=== PATIENT | male | born 1945 | race Caucasian/White ===

== ENCOUNTER 2017-02-10 01:15 | Inpatient (IN) | payer OTHER, MEDICAID ==
--- NOTE | 2017-02-10 01:39 | EDPHY ---
H & P Time Seen by Provider: 02/10/17 01:21 HPI/ROS: HPI The patient presents with a cold right leg which was noted tonight by his nurse at [facility]. He is brought in by ambulance. His nurse last assessed him 2 days ago and at that time his leg was red and swollen. It was being treated with some sort of wound care. When she saw him tonight, she noticed that the leg was cold and she was not able to find pulses, thus 911 was called. [facility] At this time the patient was noted to have a swollen leg and ABIs were performed which were supposedly normal. The patient denies any acute complaint, he does not have any pain of the leg, he does report decreased sensation to the foot.. REVIEW OF SYSTEMS Constitutional: No fever, no chills. Eyes: No discharge. ENT: No sore throat. Cardiovascular: No chest pain, no palpitations. Respiratory: No cough, no shortness of breath. Gastrointestinal: No abdominal pain, no vomiting. Genitourinary: No hematuria. Musculoskeletal: No back pain. Skin: No rashes. Neurological: No headache. PMHx: Soc Hx: Resides at [facility] FHx: PHYSICAL General Appearance: Alert, no distress Eyes: Pupils equal and round no pallor or injection ENT, Mouth: Mucous membranes moist Respiratory: There are no retractions, lungs are clear to auscultation Cardiovascular: Regular rate and rhythm Gastrointestinal: Abdomen is soft and non-tender, no masses, bowel sounds normal Neurological: A&O, moves all extremities Skin: Warm and dry, no rashes Musculoskeletal: Neck is supple non tender Extremities: Right leg, all toes have been amputated, foot and leg is mottled to knee and cold to mid thigh, he has range of motion of his ankle and his knee , he has decreased sensation of his foot, Left BKA Psychiatric: Patient is oriented X 3, there is no agitation Source: Patient, EMS Constitutional: Initial Vital Signs Temperature (C) 36.4 C 02/10/17 01:23 Heart Rate 72 02/10/17 01:23 Respiratory Rate 18 02/10/17 01:23 Blood Pressure 94/69 L 02/10/17 01:23 O2 Sat (%) 93 02/10/17 01:23 O2 Delivery Mode Room Air Allergies/Adverse Reactions: No Known Allergies Allergy (Unverified 02/10/17 01:36) Medical Decision Making - Diagnostics EKG Interpretation: EKG: Complete interpretation has been separately recorded in the [facility] archive. Summary impression: Atrial flutter with right bundle-branch block Imaging Results: CTA of right lower extremity demonstrates no discrete embolism or filling defect identified, contrast column phase at level of origin of the anterior tibial artery and the common peroneal trunk. This is discussed with Dr. Vizcarra of Radiology. Slow inflow confound the study results. Differential Diagnosis: This is a 71-year-old man with vascular disease who presents brought in by ambulance from [facility] with concern for limb ischemia. The duration of his symptoms is somewhat unclear. He denies any acute pain. Differential diagnosis includes acute embolic arterial disease, peripheral vascular disease with stenosis, cellulitis. In the ER, labs were checked and did reveal elevated INR. Otherwise they were unremarkable. A CTA was performed which did demonstrate some signs of decreased perfusion. I consulted with Dr. Betancur of surgery and Dr. Eng of the hospitalist service. They will see the patient in consultation. It seems that the patient is not a surgical candidate as there is not a distal artery for bypass. He may benefit from interventional Radiology. I plan to start him on heparin and see how he responds. - Data Points Laboratory Results: Laboratory Results 02/10/17 01:53 02/10/17 01:53 02/10/17 02/10/17 02/10/17 01:53 01:53 01:53 WBC 6.73 10^3/uL 10^3/uL (3.80-9.50) RBC 5.67 10^6/uL 10^6/uL (4.40-6.38) Hgb 17.5 g/dL g/dL (13.7-17.5) Hct 52.6 % H % (40.0-51.0) MCV 92.8 fL fL (81.5-99.8) MCH 30.9 pg pg (27.9-34.1) MCHC 33.3 g/dL g/dL (32.4-36.7) RDW 15.3 % H % (11.5-15.2) Plt Count 234 10^3/uL 10^3/uL (150-400) MPV 10.5 fL fL (8.7-11.7) Neut % (Auto) 59.8 % % (39.3-74.2) Lymph % (Auto) 29.9 % % (15.0-45.0) [place] % (Auto) 7.1 % % (4.5-13.0) Eos % (Auto) 1.8 % % (0.6-7.6) Baso % (Auto) 0.7 % % (0.3-1.7) Nucleat RBC Rel Count 0.0 % % (0.0-0.2) Absolute Neuts (auto) 4.02 10^3/uL 10^3/uL (1.70-6.50) Absolute Lymphs (auto) 2.01 10^3/uL 10^3/uL (1.00-3.00) Absolute Monos (auto) 0.48 10^3/uL 10^3/uL (0.30-0.80) Absolute Eos (auto) 0.12 10^3/uL 10^3/uL (0.03-0.40) Absolute Basos (auto) 0.05 10^3/uL 10^3/uL (0.02-0.10) Absolute Nucleated RBC 0.00 10^3/uL 10^3/uL (0-0.01) Immature Gran % 0.7 % % (0.0-1.1) Immature Gran # 0.05 10^3/uL 10^3/uL (0.00-0.10) PT 25.1 SEC H SEC (12.0-15.0) INR 2.25 H (0.83-1.16) APTT 45.0 SEC H SEC (23.0-38.0) Sodium 139 mEq/L mEq/L (134-144) Potassium 4.8 mEq/L mEq/L (3.5-5.2) Chloride 103 mEq/L mEq/L (97-110) Carbon Dioxide 25 mEq/l mEq/l (22-31) Anion Gap 11 mEq/L mEq/L (8-16) BUN 20 mg/dL mg/dL (7-23) Creatinine 0.8 mg/dL mg/dL (0.7-1.3) Estimated GFR > 60 Glucose 96 mg/dL mg/dL (70-100) Calcium 10.6 mg/dL H mg/dL (8.5-10.4) Total Bilirubin 1.1 mg/dL mg/dL (0.1-1.4) AST 35 IU/L IU/L (17-59) ALT 41 IU/L IU/L (21-72) Alkaline Phosphatase 134 IU/L H IU/L (38-126) Total Protein 9.3 g/dL H g/dL (6.3-8.2) Albumin 4.4 g/dL g/dL (3.5-5.0) Departure - Departure Disposition: [facility] Inpatient Acute Clinical Impression: Lower limb ischemia Atrial fibrillation Qualifiers: Atrial fibrillation type: chronic Qualified Code(s): I48.2 - Chronic atrial fibrillation Hx of BKA Qualifiers: Laterality: left Qualified Code(s): Z89.512 - Acquired absence of left leg below knee Condition: Fair
[2017-02-10 02:02] LABS: % IMMATURE GRANULYOCYTES 0.7 % (0.0-1.1); ABSOLUTE IMMATURE GRANULOCYTES 0.05 10^3/uL (0.00-0.10); ADD DIFF? NO; ADD MORPH? NO; ADD SCAN? NO; ATYPICAL LYMPHOCYTE FLAG 30 (0-99); FRAGMENT RBC FLAG 0 (0-99); HEMATOCRIT 52.6 % (40.0-51.0); HEMOGLOBIN 17.5 g/dL (13.7-17.5); LEFT SHIFT FLG 0 (0-99); LIPEMIA HEMOLYSIS FLAG 80 (0-99); MEAN CELL HEMOGLOBIN 30.9 pg (27.9-34.1); MEAN CELL HEMOGLOBIN CONCENTR. 33.3 g/dL (32.4-36.7); MEAN CELL VOLUME 92.8 fL (81.5-99.8); MEAN PLATELET VOLUME 10.5 fL (8.7-11.7); PLATELET CLUMPS FLAG 0 (0-99); PLATELET COUNT 234 10^3/uL (150-400); RED BLOOD CELL COUNT 5.67 10^6/uL (4.40-6.38); RED CELL DISTRIBUTION WIDTH 15.3 % (11.5-15.2)
[2017-02-10 02:12] LABS: INR 2.25 (0.83-1.16); PROTIME(PATIENT) 25.1 SEC (12.0-15.0)
[2017-02-10] MEDS ORDERED: IOPAMIDOL (ISOVUE 370) 100 ML BTL IV ONE (02:17)
[2017-02-10 02:22] LABS: ALANINE AMINOTRANSFERASE 41 IU/L (21-72); ALBUMIN 4.4 g/dL (3.5-5.0); ALKALINE PHOSPHATASE 134 IU/L (38-126); ANION GAP 11 mEq/L (8-16); ASPARTATE AMINOTRANSFERASE 35 IU/L (17-59); BILIRUBIN,TOTAL 1.1 mg/dL (0.1-1.4); CALCIUM 10.6 mg/dL (8.5-10.4); CARBON DIOXIDE 25 mEq/l (22-31); CHLORIDE 103 mEq/L (97-110); CREATININE 0.8 mg/dL (0.7-1.3); GLOMERULAR FILTRATION RATE > 60; GLUCOSE 96 mg/dL (70-100); POTASSIUM 4.8 mEq/L (3.5-5.2); SODIUM 139 mEq/L (134-144); TOTAL PROTEIN 9.3 g/dL (6.3-8.2)
[2017-02-10] MEDS ORDERED: HEPARIN/DEXTROSE 500 ML IV ONE (04:35)
--- NOTE | 2017-02-10 04:45 | CPEKG ---
Heart Rate: 93 RR Interval: 645 QRSD Interval: 158 QT Interval: 416 QTC Interval: 518 QRS Steptoe: 105 T Wave Steptoe: 55 EKG Severity - ABNORMAL ECG - EKG Impression: ATRIAL FLUTTER, A-RATE 319 EKG Impression: RBBB AND LPFB Electronically Signed By: Skye Adams 10-Feb-2017 22:31:52
[2017-02-10] MEDS ORDERED: ONDANSETRON 4 MG/2 ML VIAL IVP PRN (05:23)
[2017-02-10] MEDS ORDERED: ONDANSETRON DISINTEGRATING 4 MG TAB PO PRN (05:23)
[2017-02-10] MEDS ORDERED: oxyCODONE IR 5 MG TAB PO PRN ×2 (05:23→11:56)
[2017-02-10] MEDS ORDERED: HEPARIN 10,000 UNIT/10 ML MDV IVP PRN (05:24)
[2017-02-10] MEDS ORDERED: HEPARIN/DEXTROSE 500 ML IV SCH (05:30)
--- NOTE | 2017-02-10 06:23 | GHP ---
[f rep st] HISTORY AND PHYSICAL DATE OF ADMISSION: 02/10/2017 CHIEF COMPLAINT: Cold leg. HISTORY OF PRESENT ILLNESS: This is a 71-year-old man with a history of AFib, on Xarelto, who presents with a cold leg. He is sent in from [facility]. He was evaluated for this on February 05, 5 days ago, by a physician there. At that point, he felt it was most consistent with cellulitis, ordered ABIs which were subsequently reported as normal. He was actually sent in today because the nurse, who had been on vacation, came back and felt that the temperature of his leg was much different than previous. He does not really remember. He does have sensation on his leg. It is not really painful. He is also able to move his foot. He had a left BKA due to infection. He is continuing to smoke. The patient is primarily wheelchair bound. He previously had a prosthetic and reports that he has another one ordered, however he is not sure that he really wants to walk. He is able to transfer to his wheelchair. PAST MEDICAL/SURGICAL HISTORY: 1. Urinary retention status post Perez catheter. 2. Reported pressure injury on the sacrum. 3. Reported systolic CHF. 4. Left BKA. 5. Pilonidal cyst resection. 6. Paroxysmal atrial fibrillation, on Xarelto. 7. History of a PE. 8. Dementia. 9. 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 FAMILY HISTORY: Parents are . SOCIAL HISTORY: He smokes a pack or less a day. ALLERGIES: None. MEDICATIONS: Please see medication reconciliation. REVIEW OF SYSTEMS: 10-point review of systems is conducted and is negative except per HPI. PHYSICAL EXAM: VITAL SIGNS: Blood pressure 91/69, heart rate 80, respiration rate 18, saturating 95% on room air, temperature is 36.4. GENERAL: The patient is a pleasant man who is resting comfortably, wearing dark sunglasses, in no acute distress. HEENT: Normocephalic, atraumatic. CARDIOVASCULAR: Irregularly irregular. There are no murmurs, rubs, or gallops. PULMONARY: No respiratory distress. He is breathing comfortably. His lungs are clear bilaterally. ABDOMEN: Soft, nontender, nondistended. SKIN: No rash. : Perez catheter in place. NEUROLOGIC: Alert and oriented x3. He is moving all extremities. PSYCHIATRIC: Normal mood and affect. EXTREMITIES: Right lower extremity with a palpable popliteal pulse. He has dopplerable dorsalis pedis, anterior tibialis, as well as posterior tibialis pulses on the right leg. His right leg is cold, it has got scale on it with diffuse erythema. He has sensation intact. LABS: White count of 6.7. INR of 2.25. Basic metabolic panel is normal. Total protein is 9.3. Calcium is 10.6. DATA: 1. EKG, which I personally reviewed and interpreted, shows atrial fibrillation. He has a right bundle branch block pattern. 2. Extremity CT, which I reviewed with Dr. Betancur, shows slow inflow to right leg, column contrast phase at level of origin of anterior tibial artery and common peroneal trunk with no discrete embolism or filling defect identified. 3. I discussed this with both Dr. Aldridge as well as Dr. Betancur. IMPRESSION AND PLAN: This is a 71-year-old man who presents with a cold right leg, also status post left below-knee amputation. 1. Cold right leg: Reportedly normal CAMILA and easily dopplerable pulses in the right leg are somewhat reassuring, though do not clinically fit with the temperature of his leg. I noticed that his left stump is also quite cool. Will request a formal angiogram in the morning, if there is an embolism or thrombus would consider tPA. Will empirically give him heparin overnight, without a bolus as he has been on Xarelto. Per Dr. Betancur, there is no clear target for a bypass. I am not sure what his normal blood pressures are but he is borderline hypotensive now, I wonder if that is contributing to the coldness. I will give him some slow IV fluids, acknowledging that he has congestive heart failure and this may need to be discontinued. At this point, I do not think that his right leg looks cellulitic. It is cold, not warm, and he has no white count. 2. Atrial fibrillation: Will continue his rate control medications, will currently be on heparin for anticoagulation. 3. Reported pressure ulcer: I have ordered a wound care consult. 4. Smoking: Will need to strongly encourage cessation. 5. Chronic congestive heart failure: He is currently euvolemic. Will continue cardiac medications when they are reconciled. 6. Urinary retention with chronic Perez catheter. 7. His code status is do not resuscitate per his outside records. /[id number]/MODL MTDD
--- NOTE | 2017-02-10 06:38 | GCON ---
[f rep st] CONSULTATION DATE OF CONSULTATION: 02/10/2017 CHIEF COMPLAINT: Right lower extremity pain. HISTORY OF PRESENT ILLNESS: This is a 71-year-old male transferred here from [facility] where he resides with a chief complaint of right lower extremity cellulitis and pain. Briefly, the patient has what appears to be some long-standing lower extremity issues. At any rate, has been followed at [facility] for at least the past few weeks with these. It was noted, probably about a week and a half to 2 weeks ago, that the patient had some increasing redness on his right lower extremity. T his redness has persisted and it sounds like it was worked up, somewhat at [facility]. He was ev aluated by a physician and CAMILA was ordered, and per chart review states that it was normal. At that point in time, the patient also had what appeared to be palpable pulses. At any rate, his primary manager party felt as though it was progressing, which prompted his presentation here. Here in the [facility] department, he really does not complain of much of anything including symptoms at that area. He states that there is a little bit of pain in the bottom and dorsum of his right foot, but really states that it does not feel any different than it normally does. He describes the pain as a 2/10 t o 3/10, nonradiating, and really says it is sort of more of a dull ache than anything. Other than t his, he has no complaints and states that he otherwise feels well. He is currently wheelchair bound , he has a left below-knee amputation which was done some time ago for what appears to be an infecti on and currently is wheelchair bound. He sleeps in the wheel chair. He uses the wheelchair to get around. He said that he does have a prosthesis for that left lower extremity, but that he does not really wear it and probably would not walk even if he did. PAST MEDICAL HISTORY: Atrial fibrillation, on blood thinners. PAST SURGICAL HISTORY: Left below-knee amputation. FAMILY HISTORY: Noncontributory. SOCIAL HISTORY: Resides at [facility]. Continues to smoke about a pack a day. Denies any illic it drug use. REVIEW OF SYSTEMS: A full 10-point review was performed and unless stated above, is otherwise negat torsten. PHYSICAL EXAM: VITAL SIGNS: Temp 36.4, blood pressure 90/60, heart rate 80, and he is 95% on room air. GENERAL: He is alert, oriented, in no acute distress. SKIN: With the exception of the right lower extremity, the remainder of the skin is pale and dry. The right lower extremity has some red ness extending from the lower leg just below the knee on down. The right lower extremity is cool to touch. There are some signs of chronic venous stasis and lipodermatosclerosis of the right lower e xtremity as well. He is missing his right toes. EYES: His extraocular movements are intact. His pupils are equal and round. EARS, NOSE, THROAT AND MOUTH: Moist mucosa. Poor dentition. Signs of chronic tobacco use. CV: He is irregularly-irregular. RESPIRATORY: His lungs are clear. GI: H is abdomen is soft, nondistended, nontender. NEURO: Grossly intact and nonfocal. His cranial nerv es appear intact. PSYCH: He has normal orientation and appropriate insight. VASCULAR: He has 2+ femoral pulse on the right side, 2+ popliteal pulse on the right side, and he has strong biphasic si gnals in both the DP and PT, and AT distributions. On the left side he does not have a palpable fem oral pulse. He has a weak femoral signal on that side. The remainder of his brachial and radial pu lses are palpable bilaterally. LABS: White count normal at 6, H and H 17 and 52, platelets 234. Coags: His INR is likely falsely elevated at 2.2 given his Xarelto use. His chemistry is largely unremarkable. IMAGING: Includes a CTA with runoff of the right lower extremity, the images of which were personal ly reviewed by me. This shows actually a fairly good inflow. He has good flow through the iliacs, femoral, all the way down to the popliteal distribution. It is unclear whether or not this is a poo r study, or he has poor circulation, but at the level of the trifurcation in the lower leg it appear s that he does have at least 2 vessel runoff here on the CTA , but it kind of fizzles out at the lev el of the mid to lower leg. ASSESSMENT AND PLAN: 71-year-old male with questionable threatened right lower extremity. It is un clear as to what the patient's baseline is, but my examination today does show that his right lower extremity is fairly cool to the touch which is surprising given the fact that he actually has decent flow to the lower extremity. He has good inflow on the CTA and strong biphasic pulses all the way down to the level of the foot. Given the fact that he has no fevers, chills, normal white blood andrei l count, I do not feel as though he has a large component of cellulitis and do not feel at this poin t in time that antibiotics would be useful. I do feel that warming the leg and keeping it elevated would be helpful as he does have evidence of chronic venous stasis. In addition, I think that an em piric heparin drip would help. I am unclear as to what his baseline is, as I already stated, but in creasing the flow to that lower extremity would be helpful in figuring out if this demarcates as an acutely threatened limb. In addition, I do feel that pursuing a formal angiogram would be helpful a s well, as the CTA was fairly equivocal in showing any kind distal disease in that leg, and will dmitry k with the interventional radiologist later this morning. I examined and discussed my findings with Dr. Eng, the admitting medicine physician. /[id number]/MODL
[2017-02-10] MEDS: NS 1,000 ML IV SCH ×2 (06:55→14:57)
[2017-02-10 08:01] LABS: % IMMATURE GRANULYOCYTES 0.6 % (0.0-1.1); ABSOLUTE IMMATURE GRANULOCYTES 0.04 10^3/uL (0.00-0.10); ADD DIFF? NO; ADD MORPH? NO; ADD SCAN? NO; ATYPICAL LYMPHOCYTE FLAG 30 (0-99); FRAGMENT RBC FLAG 0 (0-99); HEMATOCRIT 45.9 % (40.0-51.0); LEFT SHIFT FLG 0 (0-99); LIPEMIA HEMOLYSIS FLAG 80 (0-99); MEAN CELL HEMOGLOBIN 30.2 pg (27.9-34.1); MEAN CELL HEMOGLOBIN CONCENTR. 32.7 g/dL (32.4-36.7); MEAN CELL VOLUME 92.5 fL (81.5-99.8); MEAN PLATELET VOLUME 10.4 fL (8.7-11.7); PLATELET CLUMPS FLAG 0 (0-99); PLATELET COUNT 214 10^3/uL (150-400); RED BLOOD CELL COUNT 4.96 10^6/uL (4.40-6.38); RED CELL DISTRIBUTION WIDTH 15.4 % (11.5-15.2)
[2017-02-10 08:26] LABS: INR 1.79 (0.83-1.16); PROTIME(PATIENT) 20.9 SEC (12.0-15.0)
[2017-02-10 08:50] LABS: ALANINE AMINOTRANSFERASE 34 IU/L (21-72); ALBUMIN 3.6 g/dL (3.5-5.0); ALKALINE PHOSPHATASE 115 IU/L (38-126); ANION GAP 10 mEq/L (8-16); ASPARTATE AMINOTRANSFERASE 20 IU/L (17-59); BILIRUBIN,TOTAL 0.9 mg/dL (0.1-1.4); CALCIUM 9.7 mg/dL (8.5-10.4); CARBON DIOXIDE 25 mEq/l (22-31); CHLORIDE 104 mEq/L (97-110); CREATININE 0.7 mg/dL (0.7-1.3); GLOMERULAR FILTRATION RATE > 60; GLUCOSE 84 mg/dL (70-100); POTASSIUM 4.2 mEq/L (3.5-5.2); SODIUM 139 mEq/L (134-144)
--- NOTE | 2017-02-10 11:14 | PDCONSULT ---
Aircraft Accessories Mechanic Note: Date: 02/10/2017 Reason for Consultation: Cold right leg, concern for ischemia HPI: The patient is a 71 yo male [facility] resident with history of PAD and atrial fib s/p left BKA and partial right foot amputation in the setting of frostbite. The [facility] staff report that his right leg has been cold to the touch for the past 1-2 days. CTA was performed this morning with stoppage of contrast at the level of the tifurctation. Past Medical History Atrial fibrillation (Acute) Hx of BKA (Acute) Lower limb ischemia (Acute) Allergies: NKDA Medications: ARIPiprazole [Abilify 2 mg (*)] 2 mg PO DAILY 02/10/17 [Last Taken 02/09/17] Acetaminophen [Tylenol 325mg (*)] 325 mg PO Q6 PRN 02/10/17 [Last Taken Unknown] Ascorbic Acid [Vitamin C 500 mg (*)] 1,000 mg PO BID 02/10/17 [Last Taken ] Carvedilol [Coreg (*)] 6.25 mg PO BIDMEAL 02/10/17 [Last Taken 02/09/17] Cholecalciferol Vit D3 [Vitamin D3 (*)] 50,000 unit PO WE 02/10/17 [Last Taken 02/07/17] Digoxin [Lanoxin 125 mcg (RX)] 125 mcg PO DAILY@08 02/10/17 [Last Taken 02/09/17 ] Fluconazole [Diflucan (*)] 150 mg PO DAILY 02/10/17 [Last Taken 02/09/17] Furosemide [Lasix 40 MG (*)] 40 mg PO DAILY 02/10/17 [Last Taken 02/09/17] Magnesium Hydroxide [Milk of Magnesia] 30 ml PO DAILY PRN 02/10/17 [Last Taken Unknown] Potassium Cl [Klor-Con 20 meq (*)] 20 meq PO DAILY 02/10/17 [Last Taken 02/09/17 ] Prednisolone Sod Phosphate [Prednisolone Sodium Phosphate] 1 drop EACHEYE QID PRN 02/10/17 [Last Taken 02/09/17] Rivaroxaban [Xarelto] 20 mg PO DAILY@17 02/10/17 [Last Taken 02/09/17] Sennosides [Senokot 8.6mg (OTC)] 2 each PO HS PRN 02/10/17 [Last Taken 02/09/17] guaiFENesin [Guaifenesin ER] 600 mg PO Q12H PRN 02/10/17 [Last Taken Unknown] oxyCODONE IR [Oxycodone Ir (*)] 5 mg PO DAILY PRN 02/10/17 [Last Taken 02/07/17] Physical Exam: Vitals: 36.8 C, 88, 15, 96/68, 90% RA General: Pleasant male, in NAD Chest: Lungs CTAB, S1,S2 Abdomen: Soft/ND Ext: Left BKA. Stump warm, no tissue breakdown. Partial right foot amputation. Chronic skin changes in calf and foot. Skin is warm and pink. Faint palpable DP and PT pulses. Labs: WBC 6.72 10^3/uL (3.80-9.50) 02/10/17 07:55 RBC 4.96 10^6/uL (4.40-6.38) 02/10/17 07:55 Hgb 15.0 g/dL (13.7-17.5) 02/10/17 07:55 Hct 45.9 % (40.0-51.0) 02/10/17 07:55 MCV 92.5 fL (81.5-99.8) 02/10/17 07:55 MCH 30.2 pg (27.9-34.1) 02/10/17 07:55 MCHC 32.7 g/dL (32.4-36.7) 02/10/17 07:55 RDW 15.4 % (11.5-15.2) H 02/10/17 07:55 Plt Count 214 10^3/uL (150-400) 02/10/17 07:55 MPV 10.4 fL (8.7-11.7) 02/10/17 07:55 Neut % (Auto) 63.7 % (39.3-74.2) 02/10/17 07:55 Lymph % (Auto) 24.9 % (15.0-45.0) 02/10/17 07:55 [place] % (Auto) 8.6 % (4.5-13.0) 02/10/17 07:55 Eos % (Auto) 1.8 % (0.6-7.6) 02/10/17 07:55 Baso % (Auto) 0.4 % (0.3-1.7) 02/10/17 07:55 Nucleat RBC Rel Count 0.0 % (0.0-0.2) 02/10/17 07:55 Absolute Neuts (auto) 4.28 10^3/uL (1.70-6.50) 02/10/17 07:55 Absolute Lymphs (auto) 1.67 10^3/uL (1.00-3.00) 02/10/17 07:55 Absolute Monos (auto) 0.58 10^3/uL (0.30-0.80) 02/10/17 07:55 Absolute Eos (auto) 0.12 10^3/uL (0.03-0.40) 02/10/17 07:55 Absolute Basos (auto) 0.03 10^3/uL (0.02-0.10) 02/10/17 07:55 Absolute Nucleated RBC 0.00 10^3/uL (0-0.01) 02/10/17 07:55 Immature Gran % 0.6 % (0.0-1.1) 02/10/17 07:55 Immature Gran # 0.04 10^3/uL (0.00-0.10) 02/10/17 07:55 PT 20.9 SEC (12.0-15.0) H 02/10/17 07:55 INR 1.79 (0.83-1.16) H 02/10/17 07:55 APTT 39.0 SEC (23.0-38.0) H 02/10/17 07:55 Sodium 139 mEq/L (134-144) 02/10/17 07:55 Potassium 4.2 mEq/L (3.5-5.2) 02/10/17 07:55 Chloride 104 mEq/L (97-110) 02/10/17 07:55 Carbon Dioxide 25 mEq/l (22-31) 02/10/17 07:55 Anion Gap 10 mEq/L (8-16) 02/10/17 07:55 BUN 18 mg/dL (7-23) 02/10/17 07:55 Creatinine 0.7 mg/dL (0.7-1.3) 02/10/17 07:55 Estimated GFR > 60 02/10/17 07:55 Glucose 84 mg/dL (70-100) 02/10/17 07:55 Calcium 9.7 mg/dL (8.5-10.4) 02/10/17 07:55 Total Bilirubin 0.9 mg/dL (0.1-1.4) 02/10/17 07:55 AST 20 IU/L (17-59) 02/10/17 07:55 ALT 34 IU/L (21-72) 02/10/17 07:55 Alkaline Phosphatase 115 IU/L (38-126) 02/10/17 07:55 Total Protein 7.0 g/dL (6.3-8.2) D 02/10/17 07:55 Albumin 3.6 g/dL (3.5-5.0) 02/10/17 07:55 Imaging: Extremity CT 02/10/17 01:42 Impression: 1. Slow inflow to the right leg results in this nondiagnostic evaluation of the arteries in the calf due to inability to fully tract the bolus (despite additional delay scan). 2. Patent right lower extremity runoff to level the popliteal artery. 3. No discrete occlusion, filling defect, or high-grade stenosis. The study was performed as an emergency on-call case and discussed by telephone with Dr. Aldridge at 4:08 AM February 10, 2017. The final interpretation is concordant with the original communication. Assessment/Recommendations: 71 yo male with history of atrial fibrillation, on Xeralto presenting with 1-2 days of "cold, blue right leg." He was started on a heparin drip in the ED and CTA of the lower extremity obtained showing moderate atherosclerotic disease in the right popliteal artery and tibial vessels with decreased contrast opacification at the trifurcation level, likely due to slow flow. He has chronic skin changes in the right calf however, the leg is warm and pink with palpable pulses on exam. There is no evidence of acute ischemia at this time. Given the fact that he is on Xeralto, I would recommend foregoing formal angiography for the time being. He would likely benefit from antiplatelet therapy and possibly statin initiation as well. Recommend FU with Interventional Radiology or Vascular surgery for more thorough evaluation. Feel free to contact me directly with any questions or concerns. Amadou Sandhu MD, PhD [phone]
[2017-02-10] MEDS ORDERED: SENNOSIDES 1 TAB PO PRN (11:56)
[2017-02-10] MEDS ORDERED: NS 500 ML IV ONE (12:09)
--- NOTE | 2017-02-10 12:13 | HOSPPROG ---
Hospitalist Progress Note Assessment/Plan: Cold extremity - presented with cold RLE, this has improved since initiation of heparin. IR does not recommend angiography given that his RLE is now warm with palpable distal pulses. Will d/c heparin and start anti-platelet therapy in addition to his Xarelto. Also, add statin. Will need outpt vascular surgery f/ u. RLE erythema in setting of venous stasis changes - doubt cellulitis / infection as pt if afebrile with normal wbc's. However, given hypotension, will check BCx 's and lactate. Small fluid bolus now, monitor clinical symptoms. Hypotension - This may have contributed to poor perfusion of RLE. Holding his Coreg and Lasix for now as he is receiving IVF's. ?volume depletion though as above, check BCx's and lactate. H/O chronic HF - Euvolemic to dry on arrival, cautious with IVF's, BP improved this evening, will dc IVF's for now. Resume Lasix in AM if BP tolerates. Defer echo for now, unless e/o worsening HF symptoms. PVD - On Xarelto, add ASA as above. Will need outpt f/u with Dr. Brandon Garcia fib - Rate controlled on Digoxin and Coreg, holding the latter for hypotension. Cont Xarelto for stroke prevention. Dementia - at risk for acute delirium, prn seroquel Temporal wasting - check HIV DNR Subjective: Pt admitted this am with cold RLE. This has since resolved. He has dementia, is not conversing in a reasonable manner. No fevers here in ED. Objective: Vital Signs Temp Pulse Resp BP Pulse Ox 36.8 C 88 16 96/68 L 90 L 02/10/17 08:00 02/10/17 08:00 02/10/17 08:00 02/10/17 08:00 02/10/17 08:00 Laboratory Results 02/10/17 07:55 02/10/17 07:55 PT 20.9 SEC (12.0-15.0) H 02/10/17 07:55 INR 1.79 (0.83-1.16) H 02/10/17 07:55 - Physical Exam Constitutional: chronically ill appearing, other (+temporal wasting) Eyes: PERRL Ears, Nose, Mouth, Throat: moist mucous membranes Cardiovascular: regular rate and rhythym Respiratory: no respiratory distress, clear to auscultation Gastrointestinal: normoactive bowel sounds, soft, non-tender abdomen Skin: warm Musculoskeletal: other (RLE with chronic venous stasis changes, 2+ DP pulse, no significant heat to touch) Psychiatric: poor insight, poor judgement, poor memory ICD10 Worksheet Patient Problems: Problems Problem Status Onset Atrial fibrillation Acute Hx of BKA Acute Lower limb ischemia Acute
[2017-02-10] MEDS ORDERED: QUEtiapine FUMARATE 25 MG TAB PO PRN (12:16)
[2017-02-10] MEDS ORDERED: NICOTINE POLACRILEX 2 MG GUM B PRN (12:17)
[2017-02-10] MEDS: ARIPiprazole 2 MG TAB PO SCH (14:52)
[2017-02-10] MEDS: ATORVASTATIN CALCIUM 40 MG TAB PO SCH (14:52)
[2017-02-10] MEDS: DIGOXIN 125 MCG TAB PO SCH (14:52)
[2017-02-10] MEDS: FLUCONAZOLE 150 MG TAB PO SCH (14:52)
[2017-02-10] MEDS: ASPIRIN 325 MG TAB PO SCH (14:56)
[2017-02-10] MEDS: ACETAMINOPHEN 325 MG TAB PO PRN (14:56)
[2017-02-10] MEDS ORDERED: prednisoLONE ACET 1% 5 ML OPHT.BTL EACHEYE PRN (15:00)
[2017-02-11] MEDS: DIGOXIN 125 MCG TAB PO SCH (08:19)
[2017-02-11] MEDS: FLUCONAZOLE 150 MG TAB PO SCH (08:19)
[2017-02-11] MEDS: ASPIRIN 325 MG TAB PO SCH (08:19)
[2017-02-11] MEDS: ARIPiprazole 2 MG TAB PO SCH (08:20)
[2017-02-11] MEDS: ATORVASTATIN CALCIUM 40 MG TAB PO SCH (08:20)
[2017-02-11] MEDS ORDERED: CARVEDILOL 3.125 MG TAB PO SCH (09:00)
[2017-02-11] MEDS ORDERED: FUROSEMIDE 40 MG TAB PO SCH (09:00)
--- NOTE | 2017-02-11 12:57 | WOCRNPDOC ---
WOCRN Advanced Assessment Note - Skin Integrity Problem, Advanced Assess Right Lower Leg Venous Stasis Ulcer Dressing Type: Open to Air Exudate Amount: None Exudate Characteristic(s): None Integumentary Issue Intervention: Lotion/Cream Applied (Attrac-tain) Bea Wound Tissue: Erythema, Venous Dermatitis Skin Integrity Problem Comment: No wound observed on RLE. Erythema noted throughout entire LE, along w/ venous dermatitis and copious dry, scaly skin. food quality technician reported dependent rubor, though patient's leg was elevated during assessment and continued to have redness throughout. DP pulse +1 in RLE. No edema noted presently, but skin has puckered appearance indicative of prior swelling to this extremity. Possible mixed venous and arterial insufficiency. Ordered Attrac-tain cream to be applied to RLE BID. Wound care does not need to follow going forward.
[2017-02-11] MEDS ORDERED: NS 1,000 ML IV SCH (19:00)
--- NOTE | 2017-02-11 19:02 | HOSPPROG ---
Hospitalist Progress Note Assessment/Plan: Cold extremity - presented with cold RLE, this improved on heparin. IR did not recommend angiography given that his RLE is now warm with palpable distal pulses. Now off heparin. Added ASA to Xarelto, along with statin. Will need outpt vascular surgery f/u. RLE erythema in setting of venous stasis changes - doubt cellulitis / infection as pt if afebrile with normal wbc's. Lactate normal. BCx's pending. Keep leg elevated. Hypotension - persists. Holding his Coreg and Lasix. Check am cortisol to r/o adrenal insufficiency. Check echo to evaluate LV function given h/o HF. Will resume IVF's tonight. H/O chronic HF - Euvolemic to dry on arrival. Holding diuretics given hypotension. Echo ordered. PVD - On Xarelto, add ASA as above. Will need outpt f/u with Dr. Brandon Garcia fib - Rate controlled on Digoxin and Coreg, holding the latter for hypotension. Cont Xarelto for stroke prevention. Dementia - at risk for acute delirium, prn seroquel Temporal wasting - check HIV DNR Subjective: Pt feels ok, but doesn't think he is ready for discharge. No specific complaints. When leg is elevated, he has good perfusion and normal pulses, but per RN, leg became cold and purple with dependent position. Objective: Vital Signs Temp Pulse Resp BP Pulse Ox 36.6 C 70 18 86/67 L 89 L 02/11/17 15:34 02/11/17 15:34 02/11/17 15:34 02/11/17 15:34 02/11/17 15:34 Laboratory Results 02/11/17 04:59 02/10/17 07:55 02/10/17 02/11/17 02/12/17 05:59 05:59 05:59 Intake Total 550 Output Total 1200 650 Balance -650 -650 PT 20.9 SEC (12.0-15.0) H 02/10/17 07:55 INR 1.79 (0.83-1.16) H 02/10/17 07:55 - Physical Exam Constitutional: chronically ill appearing Eyes: PERRL Ears, Nose, Mouth, Throat: moist mucous membranes Cardiovascular: regular rate and rhythym Respiratory: no respiratory distress, clear to auscultation Gastrointestinal: normoactive bowel sounds, soft, non-tender abdomen Skin: warm Musculoskeletal: other (RLE with chronic venous stasis changes, pink, warm, 2+ DP) Neurologic: AAOx3 Psychiatric: interacting appropriately ICD10 Worksheet Patient Problems: Problems Problem Status Onset Atrial fibrillation Acute Hx of BKA Acute Lower limb ischemia Acute
[2017-02-11 23:11] VITALS: TEMP 97.5
[2017-02-12 04:54] LABS: CORTISOL-AM 13.4 ug/dL (4.5-22.7)
[2017-02-12] MEDS: ACETAMINOPHEN 325 MG TAB PO PRN (06:10)
[2017-02-12 08:33] VITALS: BP 104/80; PULSE 72; RESP 17; O2SAT 93
[2017-02-12] MEDS: ATORVASTATIN CALCIUM 40 MG TAB PO SCH (09:21)
[2017-02-12] MEDS: ARIPiprazole 2 MG TAB PO SCH (09:21)
[2017-02-12] MEDS: ASPIRIN 325 MG TAB PO SCH (09:21)
[2017-02-12] MEDS: DIGOXIN 125 MCG TAB PO SCH (09:21)
[2017-02-12] MEDS: FLUCONAZOLE 150 MG TAB PO SCH (09:21)
--- NOTE | 2017-02-12 09:47 | PDIAF ---
- Diagnosis Diagnosis: peripheral vascular disease Code Status: Do Not Resuscitate - Medication Management Discharge Medications: Medications to Continue on Transfer ARIPiprazole [Abilify 2 mg (*)] 2 mg PO DAILY 02/10/17 [Last Taken 02/09/17] Acetaminophen [Tylenol 325mg (*)] 325 mg PO Q6 PRN 02/10/17 [Last Taken Unknown] Ascorbic Acid [Vitamin C 500 mg (*)] 1,000 mg PO BID 02/10/17 [Last Taken ] Cholecalciferol Vit D3 [Vitamin D3 (*)] 50,000 unit PO WE 02/10/17 [Last Taken 02/07/17] Digoxin [Lanoxin 125 mcg (RX)] 125 mcg PO DAILY@08 02/10/17 [Last Taken 02/09/17 ] Fluconazole [Diflucan (*)] 150 mg PO DAILY 02/10/17 [Last Taken 02/09/17] Magnesium Hydroxide [Milk of Magnesia] 30 ml PO DAILY PRN 02/10/17 [Last Taken Unknown] Potassium Cl [Klor-Con 20 meq (*)] 20 meq PO DAILY 02/10/17 [Last Taken 02/09/17 ] Prednisolone Sod Phosphate [Prednisolone Sodium Phosphate] 1 drop EACHEYE QID PRN 02/10/17 [Last Taken 02/09/17] Rivaroxaban [Xarelto] 20 mg PO DAILY@17 02/10/17 [Last Taken 02/09/17] Sennosides [Senokot] 2 each PO HS PRN 02/10/17 [Last Taken 02/09/17] guaiFENesin [Guaifenesin ER] 600 mg PO Q12H PRN 02/10/17 [Last Taken Unknown] oxyCODONE IR [Oxycodone Ir (*)] 5 mg PO DAILY PRN 02/10/17 [Last Taken 02/07/17] Aspirin [Aspirin 325 mg (*)] 325 mg PO DAILY #30 tab 02/12/17 [Last Taken Unknown] Atorvastatin Calcium [Lipitor 40 mg (*)] 40 mg PO DAILY #30 tab 02/12/17 [Last Taken Unknown] Carvedilol [Coreg (*)] 3.125 mg PO BIDMEAL #60 tab 02/12/17 [Last Taken Unknown] Furosemide [Lasix 20 MG (*)] 20 mg PO DAILY #30 tab 02/12/17 [Last Taken Unknown ] Discharge Medications: Refer to the Discharge Home Medication list for PRN reason. - Orders Services needed: Registered Nurse Diet Recommendation: no restrictions on diet Weigh Patient: daily Perez: Yes Additional: KEEP LEGS ELEVATED AT ALL TIMES - Follow Up Care Current Providers and Referrals: JASMIN CADE [Primary Care Provider] - As per Instructions Kei Taylor MD [Medical Doctor] -
--- NOTE | 2017-02-12 10:39 | GDS ---
[f rep st] DISCHARGE SUMMARY DISCHARGE DIAGNOSES: 1. Peripheral vascular disease presenting with cold right lower extremity, which has since resolved . 2. Right lower extremity venous stasis. 3. Hypotension, resolved. 4. History of chronic heart failure. The patient presented slightly hypovolemic on arrival and is discharged in an euvolemic state. 5. Atrial fibrillation. 6. Dementia. 7. Temporal wasting. Human immunodeficiency virus test is pending. CONSULTANTS: 1. Dr. Carlos Betancur, general surgery. 2. Dr. Amadou Bai, interventional radiology. IMAGING STUDIES/PROCEDURES: CT angiogram of the abdomen and pelvis with bilateral lower extremity r unoff on February 10, 2017, showed slow inflow to the right leg though a nondiagnostic evaluation of the arteries in the calf due to inability to fully track the bolus. There was patent right lower extrem ity runoff to the level of the popliteal artery and no discrete occlusion, filling defect or high-gr donte stenosis. HISTORY: For details, please see the history and physical dated February 10, 2017. In brief, the patijohny malcolm is a 71-year-old male who resides at [facility] with a history of atrial fibrillation and perip heral vascular disease on chronic anticoagulation with Xarelto, who presented to the emergency depar tment after it was noted his right lower extremity was cold. He was admitted to the hospital for fu rther evaluation. HOSPITAL COURSE: In the emergency department, patient underwent CT angiography with results above. He reportedly had normal ABIs prior to arrival. Plans were to proceed with a formal angiogram stud y after this was recommended by our surgical consult. However, at the time of evaluation by [facility], the patient had a warm extremity with palpable distal pulses. Given the fact mary t he was on Xarelto, it was decided not to proceed with formal angiography. During his hospitalizat ion, it was noted that he had a well perfused leg when it is elevated. However, when he tries to am bulate with therapy, it was reported his leg again became purple. He quickly returns to baseline wi th improvement of color and palpable distal pulses when he returns to resting state with his legs el evated. He was initially treated with IV heparin and then transitioned to oral aspirin in addition to statin therapy. I discussed the case with Dr. Yessenia Coe prior to discharge given the reports o f the changes occurring during therapy sessions. She recommended that the patient have outpatient f ollowup with Dr. Kei Taylor. In the mean time, it is recommended he keep his legs elevated at al l times, as it seems he only has trouble when his legs are in a dependent state. He reportedly has a history of chronic heart failure, though appeared slightly hypovolemic on arriva l. He was also found to be slightly hypotensive with blood pressures in the high 80s to 90s systoli c. His Coreg and Lasix were held. His blood pressure improved to 104/80 at the time of discharge. I do not think he is tolerating his current doses of Coreg and Lasix, so he will be discharged with lower doses of these medications with hold parameters, to hold for SBP less than 100. He is instru cted to keep his legs elevated at all times until he [facility] Further workup of his hypotension included blood cultures, which were negative. La ctic acid was normal. There was no evidence of infection. We do not think he has a right lower ext remity cellulitis as he has had no fevers and normal white count, and the color of his leg on discha rge appears consistent with venous stasis changes. TSH is normal. Morning cortisol was normal. HI V antibody is pending. DISPOSITION: Patient is discharged to a long-term facility in stable condition. FOLLOWUP: 1. Dr. Kei Taylor, vascular surgery, within 7-[address] Sujit Alexander, primary care provider. DISCHARGE MEDICATIONS: [facility] for [facility]. New medications on discharge include 1. Aspirin 325 mg p.o. daily in addition to his regular Xarelto dose. 2. Atorvastatin 40 mg p.o. daily. Changed medications on discharge: 1. Coreg was decreased to 3.125 mg p.o. twice daily, hold for SBP less than 100. 2. Lasix is decreased to 20 mg p.o. daily, #30, no refills. Hold for SBP less than 100. He will continue all other outpatient medications as prescribed. /[id number]/MODL
--- NOTE | 2017-02-12 10:43 | ECHO ---
[id number] + + [id number] : : [place] [address] : : [phone] + Adult Echocardiographic Report + ------+ :Name: JANNA FREEMAN Leticia Date: 02/12/2017 08:41 AM : : [id number] :: 1945 Gender: Male Height: 78 in : :Age: 71 yrs Race: WH Weight: 155 lb : :Reason For Study: Hypotentsion/h/o heart failure : : BSA: 2.0 meters 2 : + ------+ MMode/2D Measurements \T\ Calculations IVSd: 0.95 cm LVIDd: 5.1 cm FS: 29.9 % Ao root diam: LVPWd: 0.93 cm LVIDs: 3.5 cm EDV(Teich): 3.8 cm 121.7 ml LA dimension: ESV(Teich): 4.0 cm 52.5 ml EF(Teich): 56.8 % LVLd ap4: 8.0 cm SV(MOD-sp4): EDV(MOD-sp4): 46.0 ml 76.0 ml LVLs ap4: 6.9 cm ESV(MOD-sp4): 30.0 ml EF(MOD-sp4): 60.5 % Normal Measurement Values: + + :LVIDd (3.5-5.7cm) IVSd (0.6-1.1cm) LVPWd (0.6-1.1cm) Aortic Root (2.0-3.7cm)Left Atrium (1.5-4.0cm): :LV Vol(d) (76-115ml) LV Vol(s) (29-48ml) Ejec Fraction (50-65%)PV Jerome (0.6- 1.2m/s) TV Jerome (0.4-1.0m/s) : :MV E Jerome (0.8-1.0m/s)MV A Jerome (0.3-1.0m/s)LVOT Jerome (0.7-1.2m/s) Asc Ao Jerome ( 0.9-1.8m/s) : + + Doppler Measurements \T\ Calculations MV E max jerome: 54.3 cm/sec Ao V2 max: 98.0 cm/sec TR max jerome: 279.6 cm/sec MV A max jerome: 28.1 cm/sec Ao max P.8 mmHg TR max P.3 mmHg MV E/A: 1.9 RAP systole: 10.0 mmHg RVSP(TR): 41.3 mmHg Left Ventricle The left ventricle is normal in size. There is normal left ventricular wall thickness. Left ventricular systolic function is normal. Ejection Fraction = 55-60%. Flattened septum is consistent with RV pressure/volume overload. Right Ventricle The right ventricle is mild to moderately dilated. Atria The left atrium is mild to moderately dilated. The right atrium is mildly dilated. Mitral Valve The mitral valve is normal in structure and function. There is no mitral valve stenosis. There is mild mitral regurgitation. Tricuspid Valve Normal tricuspid valve. There is mild tricuspid regurgitation. Right ventricular systolic pressure is 42mmHg. There is Doppler evidence for mild pulmonary hypertension. Aortic Valve The aortic valve is trileaflet. The aortic valve opens well. There is no aortic stenosis. There is no aortic insufficiency. Pulmonic Valve The pulmonic valve is normal in structure and function. There is no pulmonic valvular regurgitation. Great Vessels The aortic root is normal size. Pericardium/Pleural There is no pericardial effusion. There is a fat pad seen. Conclusion A complete two-dimensional transthoracic echocardiogram was performed (2D, M-mode, Doppler and color flow Doppler). 1. The left ventricle is normal in size. There is normal left ventricular wall thickness. Flattened septum is consistent with RV pressure/volume overload. The LVEF is 55 to 60%. 2. The right ventricle is mild to moderately dilated. 3. There is biatrial enlargment 4. The mitral valve is normal in structure and function. There is mild mitral regurgitation. 5. The aortic valve is trileaflet. There is no aortic stenosis. There is no aortic insufficiency. 6. There is Doppler evidence for mild pulmonary hypertension. Right ventricular systolic pressure is 42mmHg. 7. No old studies for comparison. Final Reading Physician: Salvatore Chandler MD electronically signed on 02/12/2017 10:41 AM Ordering Physician: Vee Haile Performed By: Jena Ulloa RDCS
== END 2017-02-12 12:22 | DRG 300 ==
LOC: EDUNIT# → OBSVTOIN 05:23 → F3N 13:28
PROVIDERS: ADMIT Student in an Organized Health Care Education/Training Program; ATTEND Student in an Organized Health Care Education/Training Program
DX: I73.9 Peripheral vascular disease, unspecified (principal); I50.22 Chronic systolic (congestive) heart failure; I87.8 Other specified disorders of veins; I48.91 Unspecified atrial fibrillation; F03.90 Unspecified dementia, unspecified severity, without behavioral disturbance, psychotic disturbance, mood disturbance, and anxiety; M62.50 Muscle wasting and atrophy, not elsewhere classified, unspecified site; R33.9 Retention of urine, unspecified; Z79.01 Long term (current) use of anticoagulants; Z89.512 Acquired absence of left leg below knee; Z86.711 Personal history of pulmonary embolism; Z72.0 Tobacco use; Z66 Do not resuscitate
CPT/HCPCS: 97161-GP; 97165-GO; 97530-GP; G8978-GP-CK; G8979-GP-CJ; G8987-GO-CK; G8988-GO-CJ; J1644; Q9967

== ENCOUNTER 2017-02-28 10:38 | Emergency (ER) | payer OTHER, MEDICAID ==
[2017-02-28 10:51] VITALS: RESP 18; O2SAT 94
--- NOTE | 2017-02-28 11:37 | EDPHY ---
H & P Stated Complaint: bleeding from gums and foul smell from mouth Time Seen by Provider: 02/28/17 11:19 HPI/ROS: CHIEF COMPLAINT: Oral bleeding. HISTORY OF PRESENT ILLNESS: The patient is a 71-year-old male anticoagulated on Xarelto who presents via EMS for oral bleeding that began a few days ago. Patient has extensive dental caries and widespread dental decay. He began bleeding from 1 of his tooth sockets 3 days ago. Staff at [facility] packed the socket yesterday and left in place overnight. When the packing was removed , patient reports that the bleeding has started again. However, on arrival to [facility] there is no bleeding source from his mouth. Patient denies associated tooth pain. Patient denies pain, denies fevers or chills, denies chest pain, shortness of breath, abdominal pain, weakness, or urinary complaints. Patient does have an indwelling Melendez catheter. REVIEW OF SYSTEMS: Aside from elements discussed in the HPI, a comprehensive 10-point review of systems was reviewed and is negative. PAST MEDICAL HISTORY: Urinary retention, indwelling Melendez catheter, systolic CHF , left BKA, atrial fibrillation, PE, dementia. SOCIAL HISTORY: Lives at [facility]. VITAL SIGNS: Reviewed by me. Initial blood pressure documented at 144/114. Blood pressure on my examination is 85 systolic. GENERAL: Disheveled, resting comfortably in no respiratory distress. Patient denies any complaints. He is not sure why he is here. HEENT: Atraumatic. Eyes: No icterus, no injection. Mouth: moist mucous membranes. Widespread dental decay, vesicle on uvula. No obvious gum infections , no swelling or abscess. Neck: supple with no adenopathy. LUNGS: Clear to auscultation bilaterally, no wheezes, rhonchi or rales. CARDIAC: Regular rate and rhythm, no rubs, murmurs or gallops. Occasional premature beat. ABDOMEN: Soft, nontender, nondistended, bowel sounds normal. BACK: No CVA tenderness. EXTREMITIES: Previous left BKA. Right lower extremity: ulceration on heel. NEURO: Alert and oriented, grossly nonfocal. SKIN: Warm and dry, no rash. PSYCHIATRIC: Normal mentation, no agitation. Portions of this note were transcribed by a biomedical engineering technician. I personally performed a history, physical exam, medical decision making, and confirmed accuracy of information the transcribed note. Source: Patient Exam Limitations: No limitations - Personal History Current Tetanus/Diphtheria Vaccine: Unsure Current Tetanus Diphtheria and Acellular Pertussis (TDAP): Unsure - Medical/Surgical History Hx Asthma: No Hx Chronic Respiratory Disease: Yes Hx Diabetes: No Hx Cardiac Disease: Yes Hx Renal Disease: No Hx Cirrhosis: No Hx Alcoholism: Yes Hx HIV/AIDS: No Hx Splenectomy or Spleen Trauma: No Other PMH: chf, copd, dementia, hypertension, indwelling melendez cath, non- ambulatory, paroxymal a fib, LLE bka, R foot 5 toe amputation - Social History Smoking Status: Current every day smoker Constitutional: Initial Vital Signs Temperature (C) 37 C 02/28/17 10:49 Heart Rate 90 02/28/17 10:49 Respiratory Rate 18 02/28/17 10:49 Blood Pressure 144/114 H 02/28/17 10:49 O2 Sat (%) 94 02/28/17 10:49 O2 Delivery Mode Room Air Allergies/Adverse Reactions: No Known Allergies Allergy (Unverified 02/10/17 01:36) Home Medications: Medication Instructions Recorded ARIPiprazole [Abilify 2 mg (*)] 2 mg PO DAILY 02/10/17 Acetaminophen [Tylenol 325mg (*)] 325 mg PO Q6 PRN 02/10/17 Ascorbic Acid [Vitamin C 500 mg 1,000 mg PO BID 02/10/17 (*)] Cholecalciferol Vit D3 [Vitamin D3 50,000 unit PO WE 02/10/17 (*)] Digoxin [Lanoxin 125 mcg (RX)] 125 mcg PO DAILY@08 02/10/17 Fluconazole [Diflucan (*)] 150 mg PO DAILY 02/10/17 Magnesium Hydroxide [Milk of 30 ml PO DAILY PRN 02/10/17 Magnesia] Potassium Cl [Klor-Con 20 meq (*)] 20 meq PO DAILY 02/10/17 Prednisolone Sod Phosphate 1 drop EACHEYE QID PRN 02/10/17 [Prednisolone Sodium Phosphate] Rivaroxaban [Xarelto] 20 mg PO DAILY@17 02/10/17 Sennosides [Senokot] 2 each PO HS PRN 02/10/17 guaiFENesin [Guaifenesin ER] 600 mg PO Q12H PRN 02/10/17 oxyCODONE IR [Oxycodone Ir (*)] 5 mg PO DAILY PRN 02/10/17 Aspirin [Aspirin 325 mg (*)] 325 mg PO DAILY #30 tab 02/12/17 Atorvastatin Calcium [Lipitor 40 40 mg PO DAILY #30 tab 02/12/17 mg (*)] Carvedilol [Coreg (*)] 3.125 mg PO BIDMEAL #60 tab 02/12/17 Furosemide [Lasix 20 MG (*)] 20 mg PO DAILY #30 tab 02/12/17 Cephalexin [Keflex (RX)] 500 mg PO TID 7 Days 02/28/17 Medical Decision Making - Diagnostics EKG Interpretation: 12-LEAD EKG: Please see the full report in [facility]. My interpretation: Atrial fibrillation ED Course/Re-evaluation: 71-year-old male presents via EMS from [facility] for oral bleeding. He has no associated symptoms. On exam he has widespread dental decay but no obvious infection. I am concerned about his blood pressure at 94/60. Patient had a complete evaluation including chemistries, CBC, troponin, and a urinalysis. Lactic acid was sent, although the patient had no history of fever , and no concerns regarding infection. Heart rate was 90 on arrival, no tachypnea, no low O2 sat. Initial lactic acid elevated at 3.3. Patient received 2 L of normal saline. He does report limited oral intake secondary to packing is mouth in his gum bleeding. Repeat lactic acid is 1.4. Patient's urinalysis demonstrates white cells, some red cells, and trace bacteria. Patient does have an indwelling Melendez. This urine will be sent for culture. Patient received Keflex by mouth. I do not believe the patient is septic. He is not meet sepsis criteria did not present with any overt concerns regarding infection. He may have a urinary tract infection. Sepsis Evaluation Note: The patient presents to the ED without a potential infection identified. The patient did not have evidence of SIRS with no temperature greater than 38 degree Celsius, heart rate less than 90 on arrival, respiratory rate less than 20, and WBC greater than 12,000. Patient did have an elevated lactic acid at 3.3, however, repeat lactic acid is normal at 1.4. Patient was treated with Keflex pending the results of the urine culture. Again the primary reason for the patient's emergency department visit resolves around bleeding from mouth which has self limited. Differential Diagnosis: Differential diagnoses for the patient's symptom complex was considered including but not limited to dental decay, dental abscess, dental infection, urinary tract infection, over-anticoagulated, trench mouth. - Data Points Laboratory Results: Laboratory Results 02/28/17 12:23 02/28/17 12:23 02/28/17 02/28/17 02/28/17 14:32 14:30 12:23 WBC RBC Hgb Hct MCV MCH MCHC RDW Plt Count MPV Neut % (Auto) Lymph % (Auto) [place] % (Auto) Eos % (Auto) Baso % (Auto) Nucleat RBC Rel Count Absolute Neuts (auto) Absolute Lymphs (auto) Absolute Monos (auto) Absolute Eos (auto) Absolute Basos (auto) Absolute Nucleated RBC Immature Gran % Immature Gran # VBG Lactic Acid 1.4 mmol/L mmol/L (0.7-2.1) Sodium 141 mEq/L mEq/L (134-144) Potassium 4.2 mEq/L mEq/L (3.5-5.2) Chloride 104 mEq/L mEq/L (97-110) Carbon Dioxide 26 mEq/l mEq/l (22-31) Anion Gap 11 mEq/L mEq/L (8-16) BUN 23 mg/dL mg/dL (7-23) Creatinine 0.7 mg/dL mg/dL (0.7-1.3) Estimated GFR > 60 Glucose 85 mg/dL mg/dL (70-100) Calcium 10.1 mg/dL mg/dL (8.5-10.4) Troponin I < 0.012 ng/mL ng/mL (0-0.034) Urine Color YELLOW Urine Appearance MODERATELY TURBID Urine pH 5.0 (5.0-7.5) Ur Specific [place] 1.019 (1.002-1.030) Urine Protein NEGATIVE (NEGATIVE) Urine Ketones NEGATIVE (NEGATIVE) Urine Blood 3+ H (NEGATIVE) Urine Nitrate NEGATIVE (NEGATIVE) Urine Bilirubin NEGATIVE (NEGATIVE) Urine Urobilinogen NEGATIVE EU EU (0.2-1.0) Ur Leukocyte Esterase 2+ H (NEGATIVE) Urine RBC 50-182 /hpf H /hpf (0-3) Urine WBC 25-50 /hpf H /hpf (0-3) Ur Epithelial Cells NONE SEEN /lpf /lpf (NONE-1+) Calcium Oxalate Crystal PRESENT /hpf /hpf (NONE-1+) Urine Bacteria TRACE /hpf H /hpf (NONE SEEN) Urine Mucus TRACE /lpf /lpf (NONE-1+) Urine Glucose NEGATIVE (NEGATIVE) 02/28/17 02/28/17 12:23 12:23 WBC 8.23 10^3/uL 10^3/uL (3.80-9.50) RBC 5.19 10^6/uL 10^6/uL (4.40-6.38) Hgb 15.8 g/dL g/dL (13.7-17.5) Hct 47.7 % % (40.0-51.0) MCV 91.9 fL fL (81.5-99.8) MCH 30.4 pg pg (27.9-34.1) MCHC 33.1 g/dL g/dL (32.4-36.7) RDW 15.1 % % (11.5-15.2) Plt Count 204 10^3/uL 10^3/uL (150-400) MPV 10.8 fL fL (8.7-11.7) Neut % (Auto) 67.2 % % (39.3-74.2) Lymph % (Auto) 23.8 % % (15.0-45.0) [place] % (Auto) 6.2 % % (4.5-13.0) Eos % (Auto) 1.7 % % (0.6-7.6) Baso % (Auto) 0.5 % % (0.3-1.7) Nucleat RBC Rel Count 0.0 % % (0.0-0.2) Absolute Neuts (auto) 5.53 10^3/uL 10^3/uL (1.70-6.50) Absolute Lymphs (auto) 1.96 10^3/uL 10^3/uL (1.00-3.00) Absolute Monos (auto) 0.51 10^3/uL 10^3/uL (0.30-0.80) Absolute Eos (auto) 0.14 10^3/uL 10^3/uL (0.03-0.40) Absolute Basos (auto) 0.04 10^3/uL 10^3/uL (0.02-0.10) Absolute Nucleated RBC 0.00 10^3/uL 10^3/uL (0-0.01) Immature Gran % 0.6 % % (0.0-1.1) Immature Gran # 0.05 10^3/uL 10^3/uL (0.00-0.10) VBG Lactic Acid 3.3 mmol/L H mmol/L (0.7-2.1) Sodium Potassium Chloride Carbon Dioxide Anion Gap BUN Creatinine Estimated GFR Glucose Calcium Troponin I Urine Color Urine Appearance Urine pH Ur Specific [place] Urine Protein Urine Ketones Urine Blood Urine Nitrate Urine Bilirubin Urine Urobilinogen Ur Leukocyte Esterase Urine RBC Urine WBC Ur Epithelial Cells Calcium Oxalate Crystal Urine Bacteria Urine Mucus Urine Glucose Medications Given: Discontinued Medications Sodium Chloride (Ns) 1,000 mls @ 0 mls/hr IV ONCE ONE PRN Reason: Wide Open Stop: 02/28/17 12:37 Last Admin: 02/28/17 12:40 Dose: 1,000 mls Sodium Chloride (Ns) 1,000 mls @ 0 mls/hr IV ONCE ONE; Wide Open PRN Reason: Protocol Stop: 02/28/17 13:14 Last Admin: 02/28/17 13:30 Dose: 1,000 mls Departure - Departure Disposition: Home, Routine, Self-Care Clinical Impression: Oral bleeding, Possible urinary tract infection Condition: Good Instructions: Dental Caries (ED) Additional Instructions: Follow up with a dentist as soon as possible. You have been provided the telephone numbers of multiple dental clinics in the area. Please take antibiotic as directed. This will cover any potential urinary tract infection. Watch for recurrent bleeding from the gums. Drink plenty of fluids and get plenty of rest. Return for any serious worsening of condition. Referrals: Patient,NotPresent [Unknown] - As per Instructions [facility] [Outside] - As per Instructions [facility] [Outside] - As per Instructions Dental [facility] [Outside] - As per Instructions Prescriptions: Cephalexin [Keflex (RX)] 500 mg PO TID 7 Days Report Scribed for: Mia Frost Report Scribed by: Mando Jamil Date of Report: 02/28/17 Time of Report: 11:36
[2017-02-28 12:26] LABS: % IMMATURE GRANULYOCYTES 0.6 % (0.0-1.1); ABSOLUTE IMMATURE GRANULOCYTES 0.05 10^3/uL (0.00-0.10); ADD DIFF? NO; ADD MORPH? NO; ADD SCAN? NO; ATYPICAL LYMPHOCYTE FLAG 20 (0-99); FRAGMENT RBC FLAG 0 (0-99); HEMATOCRIT 47.7 % (40.0-51.0); HEMOGLOBIN 15.8 g/dL (13.7-17.5); LEFT SHIFT FLG 0 (0-99); LIPEMIA HEMOLYSIS FLAG 80 (0-99); MEAN CELL HEMOGLOBIN 30.4 pg (27.9-34.1); MEAN CELL HEMOGLOBIN CONCENTR. 33.1 g/dL (32.4-36.7); MEAN CELL VOLUME 91.9 fL (81.5-99.8); MEAN PLATELET VOLUME 10.8 fL (8.7-11.7); PLATELET CLUMPS FLAG 10 (0-99); PLATELET COUNT 204 10^3/uL (150-400); RED BLOOD CELL COUNT 5.19 10^6/uL (4.40-6.38); RED CELL DISTRIBUTION WIDTH 15.1 % (11.5-15.2)
[2017-02-28] MEDS ORDERED: NS 1,000 ML IV ONE ×2 (12:36→13:13)
[2017-02-28 12:50] LABS: ANION GAP 11 mEq/L (8-16); CALCIUM 10.1 mg/dL (8.5-10.4); CARBON DIOXIDE 26 mEq/l (22-31); CHLORIDE 104 mEq/L (97-110); CREATININE 0.7 mg/dL (0.7-1.3); GLOMERULAR FILTRATION RATE > 60; GLUCOSE 85 mg/dL (70-100); POTASSIUM 4.2 mEq/L (3.5-5.2); SODIUM 141 mEq/L (134-144)
[2017-02-28 13:02] LABS: TROPONIN I < 0.012 ng/mL (0-0.034)
[2017-02-28 13:23] LABS: LACGHOST ORDER
[2017-02-28 15:09] LABS: COLOR YELLOW; LEUKOCYTE ESTERASE,URINE 2+ (NEGATIVE); NITRITE,URINE NEGATIVE (NEGATIVE)
[2017-02-28 15:18] LABS: BACTERIA TRACE /hpf (NONE SEEN); RBC,URINE 50-182 /hpf (0-3); WBC,URINE 25-50 /hpf (0-3)
[2017-02-28 15:19] LABS: MUCUS TRACE /lpf (NONE-1+)
[2017-02-28 15:57] VITALS: TEMP 98.4
--- NOTE | 2017-02-28 15:57 | CPEKG ---
Heart Rate: 119 RR Interval: 504 QRSD Interval: 154 QT Interval: 372 QTC Interval: 524 QRS [place]: -67 T Wave [place]: 14 EKG Severity - ABNORMAL ECG - EKG Impression: ATRIAL FIBRILLATION, V-RATE 93-155 EKG Impression: RIGHT BUNDLE BRANCH BLOCK Electronically Signed By: Mia Frost 28-Feb-2017 18:16:13
[2017-02-28 16:40] VITALS: BP 112/70; PULSE 88
[2017-02-28] MEDS ORDERED: OXYCODONE/APAP 5/325 TAB PO ONE (16:51)
== END 2017-02-28 17:03 | disposition home or self-care (01) ==
LOC: EDUNIT#
DX: K13.79 Other lesions of oral mucosa (principal); I50.9 Heart failure, unspecified; F17.200 Nicotine dependence, unspecified, uncomplicated; I11.0 Hypertensive heart disease with heart failure; J44.9 Chronic obstructive pulmonary disease, unspecified; Z79.01 Long term (current) use of anticoagulants; Z79.82 Long term (current) use of aspirin

== ENCOUNTER 2017-03-07 20:44 | Emergency (ER) | payer OTHER, MEDICAID ==
[2017-03-07 20:55] VITALS: TEMP 97.9; O2SAT 93
--- NOTE | 2017-03-07 21:40 | EDPHY ---
H & P Stated Complaint: oral or tongue bleeding today. seen here recently for same. on xaralto Time Seen by Provider: 03/07/17 21:19 HPI/ROS: CHIEF COMPLAINT: Oral bleeding HISTORY OF PRESENT ILLNESS: The patient is on Xarelto presents to the ED with oral bleeding. The patient reportedly developed symptoms of bleeding from a dry tooth socket earlier tonight. The patient has been brought in by paramedics and is now currently hemostatic. The patient was seen in the emergency department with a similar complaint several weeks ago. The patient denies any acute complaints of chest pain, melena or additional complaints REVIEW OF SYSTEMS: A comprehensive 10 point review of systems is otherwise negative aside from elements mentioned in the history of present illness. - Personal History Current Tetanus/Diphtheria Vaccine: Yes Current Tetanus Diphtheria and Acellular Pertussis (TDAP): Yes - Medical/Surgical History Hx Asthma: No Hx Chronic Respiratory Disease: Yes Hx Diabetes: No Hx Cardiac Disease: Yes Hx Renal Disease: No Hx Cirrhosis: No Hx Alcoholism: Yes Hx HIV/AIDS: No Hx Splenectomy or Spleen Trauma: No Other PMH: chf, copd, dementia, hypertension, indwelling melendez cath, non- ambulatory, paroxymal a fib, LLE bka, R foot 5 toe amputation - Social History Smoking Status: Current every day smoker - Physical Exam Exam: General Appearance: Elderly male, deconditioned, no acute distress Eyes: Pupils equal and round no pallor or injection ENT, Mouth: Dry mucous membranes, poor dentition, no obvious source of bleeding Respiratory: There are no retractions, lungs are clear to auscultation Cardiovascular: Regular rate and rhythm Gastrointestinal: Abdomen is soft and nontender, no masses, bowel sounds normal Neurological: A&O, normal motor function, normal sensory exam, normal cranial nerves Skin: Warm and dry, no rashes Musculoskeletal: Neck is supple nontender Extremities: symmetrical, full range of motion Constitutional: Initial Vital Signs Temperature (C) 36.6 C 03/07/17 20:52 Heart Rate 80 03/07/17 20:52 Respiratory Rate 15 03/07/17 20:52 Blood Pressure 91/64 L 03/07/17 20:52 O2 Sat (%) 93 03/07/17 20:52 O2 Delivery Mode Room Air Allergies/Adverse Reactions: No Known Allergies Allergy (Unverified 02/10/17 01:36) Home Medications: Medication Instructions Recorded ARIPiprazole [Abilify 2 mg (*)] 2 mg PO DAILY 02/10/17 Acetaminophen [Tylenol 325mg (*)] 325 mg PO Q6 PRN 02/10/17 Ascorbic Acid [Vitamin C 500 mg 1,000 mg PO BID 02/10/17 (*)] Cholecalciferol Vit D3 [Vitamin D3 50,000 unit PO WE 02/10/17 (*)] Digoxin [Lanoxin 125 mcg (RX)] 125 mcg PO DAILY@08 02/10/17 Fluconazole [Diflucan (*)] 150 mg PO DAILY 02/10/17 Magnesium Hydroxide [Milk of 30 ml PO DAILY PRN 02/10/17 Magnesia] Potassium Cl [Klor-Con 20 meq (*)] 20 meq PO DAILY 02/10/17 Prednisolone Sod Phosphate 1 drop EACHEYE QID PRN 02/10/17 [Prednisolone Sodium Phosphate] Rivaroxaban [Xarelto] 20 mg PO DAILY@17 02/10/17 Sennosides [Senokot] 2 each PO HS PRN 02/10/17 guaiFENesin [Guaifenesin ER] 600 mg PO Q12H PRN 02/10/17 oxyCODONE IR [Oxycodone Ir (*)] 5 mg PO DAILY PRN 02/10/17 Aspirin [Aspirin 325 mg (*)] 325 mg PO DAILY #30 tab 02/12/17 Atorvastatin Calcium [Lipitor 40 40 mg PO DAILY #30 tab 02/12/17 mg (*)] Carvedilol [Coreg (*)] 3.125 mg PO BIDMEAL #60 tab 02/12/17 Furosemide [Lasix 20 MG (*)] 20 mg PO DAILY #30 tab 02/12/17 Cephalexin [Keflex (RX)] 500 mg PO TID 7 Days 02/28/17 Medical Decision Making ED Course/Re-evaluation: The patient presents to the emergency department again with resolved oral bleeding. There is no evidence of active bleeding in the ED. The patient is currently on Xarelto. The patient has no vital sign abnormalities. He has no complaints of orthostasis or presyncope. I do feel the patient can safely be discharged home. Departure - Departure Disposition: Home, Routine, Self-Care Clinical Impression: Oral bleeding Condition: Good Instructions: Hypercoagulation (ED) Additional Instructions: 1. Return to the ED for any recurrent bleeding not alleviated with direct pressure. Referrals: NONE *PRIMARY CARE P,. [Primary Care Provider] - As per Instructions
[2017-03-07 23:04] VITALS: BP 106/68; PULSE 75; RESP 16
== END 2017-03-07 23:04 | disposition home or self-care (01) ==
LOC: EDUNIT#
DX: K13.79 Other lesions of oral mucosa (principal); F17.200 Nicotine dependence, unspecified, uncomplicated; I11.0 Hypertensive heart disease with heart failure; I50.9 Heart failure, unspecified; Z79.82 Long term (current) use of aspirin

== ENCOUNTER 2017-07-03 14:34 | Inpatient (IN) | payer OTHER, MEDICAID ==
[2017-07-03] MEDS ORDERED: NS 1,000 ML IV ONE ×2 (14:41)
--- NOTE | 2017-07-03 14:45 | CPEKG ---
Heart Rate: 99 RR Interval: 606 QRSD Interval: 146 QT Interval: 376 QTC Interval: 483 QRS [place]: -85 T Wave [place]: 247 EKG Severity - ABNORMAL ECG - EKG Impression: ATRIAL FIBRILLATION EKG Impression: RIGHT BUNDLE BRANCH BLOCK EKG Impression: ST DEPRESSION, CONSIDER ISCHEMIA, ANT-LAT LDS Electronically Signed By: Salvatore Francisco 06-Jul-2017 12:11:23
[2017-07-03 14:48] LABS: % IMMATURE GRANULYOCYTES 0.6 % (0.0-1.1); ABSOLUTE IMMATURE GRANULOCYTES 0.06 10^3/uL (0.00-0.10); ADD DIFF? NO; ADD MORPH? NO; ADD SCAN? NO; ATYPICAL LYMPHOCYTE FLAG 10 (0-99); FRAGMENT RBC FLAG 0 (0-99); HEMATOCRIT 41.2 % (40.0-51.0); HEMOGLOBIN 14.3 g/dL (13.7-17.5); LEFT SHIFT FLG 40 (0-99); LIPEMIA HEMOLYSIS FLAG 90 (0-99); MEAN CELL HEMOGLOBIN 30.5 pg (27.9-34.1); MEAN CELL HEMOGLOBIN CONCENTR. 34.7 g/dL (32.4-36.7); MEAN CELL VOLUME 87.8 fL (81.5-99.8); MEAN PLATELET VOLUME 11.8 fL (8.7-11.7); PLATELET CLUMPS FLAG 20 (0-99); PLATELET COUNT 81 10^3/uL (150-400); RED BLOOD CELL COUNT 4.69 10^6/uL (4.40-6.38); RED CELL DISTRIBUTION WIDTH 16.5 % (11.5-15.2)
--- NOTE | 2017-07-03 14:48 | EDPHY ---
H & P HPI/ROS: CHIEF COMPLAINT: Right-sided weakness, sepsis HISTORY OF PRESENT ILLNESS: The patient is an anticoagulated 71 y/o male arriving emergently via EMS as a Stroke Alert from [facility] with right- sided weakness and possible sepsis. His medical history includes dementia, atrial fibrillation, hypertension, and CHF. Per EMS, staff at his facility was unable to clearly state when symptoms began and what his baseline is. EMS reports he was hypoxemic in 70% range and tachypneic upon their arrival and leaning to the right. His prehospital BGL was 147. Patient is unable to contribute significantly to history due to condition. REVIEW OF SYSTEMS: Unable to obtain secondary to patient condition. Past medical history: Dementia, CHF, hypertension, paroxysmal atrial fibrillation - Xarelto, urinary retention with indwelling Melendez, PE, osteomyelitis, peripheral vascular disease, venous stasis Past surgical history: Left BKA Family history: Noncontributory Social history: Lives at [facility]. DNR per [facility] paperwork, comfort measures only. Prior medical records reviewed including admission 02/10/17 for peripheral vascular disease General Appearance: Alert, cachectic, tachypneic, leaning to the right. 85% SpO2 on room air. Heart rate 115, respiratory rate 42, blood pressure 108/59. He is disheveled. Eyes: Pupils equal and round, no conjunctival injection, no discharge. ENT, Mouth: Mucous membranes are moist, no oropharyngeal erythema or edema. Dentition. Neck: No lymphadenopathy, supple. Respiratory: Lungs with crackles on the left; breath sounds are distant bilaterally, tachypneic. Cardiovascular: Tachycardic rate and rhythm; no murmur, rub, or gallop appreciated. Gastrointestinal: Abdomen is soft and non tender, no masses or organomegaly, bowel sounds normal. : Melendez in place Skin: Hot and dry, no rashes, normal color. Back: Nontender to palpation over the thoracolumbar spine. Extremities: No lower extremity edema, no calf tenderness or swelling. Abrasion right montano. Left BKA. Neurological: He is awake and can answer questions. Following commands. Diffusely weak. Leaning to the right. Tongue is midline. No facial droop. Extraocular muscles intact. Psychiatric: Flat affect. - Medical/Surgical History Hx Asthma: No Hx Chronic Respiratory Disease: Yes Hx Diabetes: No Hx Cardiac Disease: Yes Hx Renal Disease: No Hx Cirrhosis: No Hx Alcoholism: Yes Hx HIV/AIDS: No Hx Splenectomy or Spleen Trauma: No Other PMH: chf, copd, dementia, hypertension, indwelling melendez cath, non- ambulatory, paroxymal a fib, LLE bka, R foot 5 toe amputation - Social History Smoking Status: Current every day smoker Constitutional: Initial Vital Signs Temperature (C) 36.5 C 07/03/17 14:42 Heart Rate 115 H 07/03/17 14:42 Respiratory Rate 42 H 07/03/17 14:42 Blood Pressure 108/59 L 07/03/17 14:42 O2 Sat (%) 87 L 07/03/17 14:42 O2 Delivery Mode Nasal Cannula O2 (L/minute) 3 Allergies/Adverse Reactions: No Known Allergies Allergy (Unverified 02/10/17 01:36) Home Medications: Medication Instructions Recorded Acetaminophen [Tylenol 325mg (*)] 325 mg PO Q6 PRN 02/10/17 Ascorbic Acid [Vitamin C 500 mg 1,000 mg PO BID 02/10/17 (*)] Cholecalciferol Vit D3 [Vitamin D3 50,000 unit PO Q30D 02/10/17 (*)] Digoxin [Lanoxin 125 mcg (RX)] 125 mcg PO DAILY@08 02/10/17 Magnesium Hydroxide [Milk of 30 ml PO DAILY PRN 02/10/17 Magnesia] Potassium Cl [Klor-Con 20 meq (*)] 20 meq PO DAILY 02/10/17 Rivaroxaban [Xarelto] 20 mg PO DAILY 02/10/17 Sennosides [Senokot] 2 each PO HS 02/10/17 oxyCODONE IR [Oxycodone Ir (*)] 5 mg PO Q6H PRN 02/10/17 Atorvastatin Calcium [Lipitor 40 40 mg PO DAILY #30 tab 02/12/17 mg (*)] Carvedilol [Coreg (*)] 3.125 mg PO BIDMEAL #60 tab 02/12/17 Furosemide [Lasix 20 MG (*)] 20 mg PO DAILY #30 tab 02/12/17 ARIPiprazole [Abilify 5 mg (*)] 5 mg PO DAILY 07/03/17 Bisacodyl [Dulcolax] 10 mg RC DAILY PRN 07/03/17 Clopidogrel Bisulfate [Plavix (*)] 75 mg PO DAILY 07/03/17 Oxybutynin Chloride Xl [Ditropan 2.5 mg PO BID 07/03/17 Xl 5mg (*)] Silver Sulfadiazine [Silvadene] 1 gm TP BID 07/03/17 Medical Decision Making - Diagnostics Imaging: Discussed imaging studies w/ calliope player Radiologist, I viewed and interpreted images myself ED Course/Re-evaluation: 1435: Met EMS upon arrival and took report. This is a 71 y/o male with dementia who is listing to the right and hot to the touch. We will stand down the Stroke Alert for now as he is globally weak with no clear focal findings and there is no clear time of onset. It is my initial impression that this is more likely sepsis. He is tachypneic, hypoxic, tachycardic, and has crackles on the left on auscultation. Presentation is suspicious for pneumonia. He meets initial sepsis screening criteria. Plan for sepsis work up including IV, labs, UA, EKG, and chest x-ray. 2L IV fluids ordered. The 12 lead EKG was interpreted by myself. Atrial fibrillation rate 99 with RBBB. Similar to EKG from 02/28/17. See hard copy and/or "tracemaster" electronic copy for interpretation. 1447: Lactate is 4.3. Patient meets severe sepsis criteria. Plan to treat as pneumonia with 1gm IV Ceftriaxone and 500mg IV azithromycin. IV fluid bolus of 30 milligrams/kilograms ordered. 1525: Spoke with hospitalist service. Dr. Perez accepts admission. He requests a Procalcitonin level as well. Chest x-ray does not show infiltrate. My initial impression was that this was likely a pulmonary infection. However I now suspect a urinary tract infection in this gentleman who has a chronic indwelling Melendez catheter. No urine has yet been obtained. 1540: Blood pressure dropped to 90/62. 1600: Blood pressure 84/64; meeting criteria for septic shock. 1613: Repeat lactate is 2.3. He has received a full fluid bolus. Reassessed patient and discussed work up with him and his friend who is now at bedside. She is his medical power of grey percher. I explained the situation to both of them--that I think he has septic shock related to infection, likely a urinary tract infection. We discussed the type of treatment he would like to have. He describes his life as "so-so" at [facility]. His activity level has recently been curtailed due to BKA and just deconditioning. He says that he is not often out of bed and when he is he is in a wheelchair. It seems that his dementia is mild although I do not have information concerning this. The 3 of us discussed placement of a central line and use of pressors to support his blood pressure in this situation. I explained the procedure of central line placement. We spoke for several minutes about the treatment that he would like to have and he has declined central line placement and pressors or support. He understands that he can change his mind if he decides to do so. Dr. Perez has ordered additional antibiotics, appropriate for urinary tract infection. There was delay in obtaining urine but urine has been sent to the laboratory. Given that the patient wants limited intervention he will be admitted to medical -surgical floor. He has continued to be hypotensive and tachypneic in the emergency department. With nasal cannula oxygen he has adequate oxygenation. His mentation has been stable. He has not had fever. Critical Care Time: I spent a total of 50 minutes of critical care time in obtaining history, performing a physical exam, bedside monitoring of interventions, collecting and interpreting tests and discussion with consultants but not including time spent performing procedures. - Data Points Laboratory Results: Laboratory Results 07/03/17 14:40 07/03/17 14:40 Microbiology Results: MICROBIOLOGY 07/03/17 14:56 Blood Blood Culture - Final Escherichia Coli 07/03/17 14:56 Blood Blood Panel (PCR) - Final Escherichia Coli 07/03/17 14:45 Blood Blood Culture - Final Escherichia Coli Medications Given: Acetaminophen (Tylenol) 325 mg PO Q6 PRN PRN Reason: Pain, Mild/Fever, Can Take PO Stop: 12/30/17 16:42 Last Admin: 07/06/17 07:58 Dose: 325 mg Aripiprazole (Abilify) 5 mg PO DAILY [facility] Stop: 12/31/17 08:59 Last Admin: 07/06/17 08:01 Dose: 5 mg Ascorbic Acid (Vitamin C) 1,000 mg PO BID [facility]RI Stop: 12/30/17 20:59 Last Admin: 07/06/17 07:58 Dose: 1,000 mg Atorvastatin Calcium (Lipitor) 40 mg PO DAILY [facility] Stop: 12/31/17 08:59 Last Admin: 07/06/17 07:57 Dose: 40 mg Clopidogrel Bisulfate (Plavix) 75 mg PO DAILY [facility]RI Stop: 12/31/17 08:59 Last Admin: 07/06/17 07:58 Dose: 75 mg Oxybutynin Chloride (Ditropan) 2.5 mg PO BID [facility] Stop: 12/30/17 20:59 Last Admin: 07/06/17 08:00 Dose: 2.5 mg Rivaroxaban (Xarelto) 20 mg PO DAILY [facility] Stop: 12/31/17 08:59 Last Admin: 07/06/17 07:57 Dose: 20 mg Senna (Senokot) 2 tab PO HS [facility] Stop: 12/30/17 20:59 Last Admin: 07/05/17 22:01 Dose: Not Given Silver Sulfadiazine (Thermazene) 1 brendon TP BID [facility] Stop: 08/02/17 20:59 Last Admin: 07/06/17 08:07 Dose: Not Given Discontinued Medications Digoxin (Lanoxin) 125 mcg PO DAILY@08 [facility] Stop: 12/31/17 07:59 Last Admin: 07/05/17 11:03 Dose: Not Given Sodium Chloride (Ns) 1,000 mls @ 0 mls/hr IV EDNOW ONE; Wide Open PRN Reason: Protocol Stop: 07/03/17 14:42 Last Admin: 07/03/17 14:53 Dose: 1,000 mls Sodium Chloride (Ns) 1,000 mls @ 0 mls/hr IV EDNOW ONE; Wide Open PRN Reason: Protocol Stop: 07/03/17 14:42 Last Admin: 07/03/17 14:55 Dose: 1,000 mls Ceftriaxone Sodium/Dextrose (Rocephin 1 Gm (Premix)) 50 mls @ 100 mls/hr IV EDNOW ONE PRN Reason: Protocol Stop: 07/03/17 15:24 Last Admin: 07/03/17 15:12 Dose: 50 mls Sodium Chloride (Ns) 1,900 mls @ 3,800 mls/hr 30 ml/kg infuse over 30 min ( 1900 ml) IV EDNOW ONE PRN Reason: Protocol Stop: 07/03/17 15:24 Last Admin: 07/03/17 15:25 Dose: 1,900 mls Azithromycin 500 mg/ Dextrose 255 mls @ 255 mls/hr IV EDNOW ONE PRN Reason: Protocol Stop: 07/03/17 15:56 Last Admin: 07/03/17 15:58 Dose: 255 mls Sodium Chloride (Ns) 1,000 mls @ 125 mls/hr IV CONT [facility] Stop: 07/04/17 04:44 Last Admin: 07/03/17 19:47 Dose: 1,000 mls Piperacillin/Tazobactam/Dextrose (Zosyn 3.375 Gm (Premix)) 50 mls @ 100 mls/hr IV Q6HRS [facility]RI PRN Reason: Protocol Stop: 08/02/17 17:59 Last Admin: 07/05/17 06:23 Dose: 50 mls Vancomycin/Sodium Chloride (Vancomycin 1 Gm (Premix)) 250 mls @ 250 mls/hr IV Q24H [facility] Stop: 08/02/17 18:59 Last Admin: 07/03/17 19:47 Dose: 250 mls Ceftriaxone Sodium/Dextrose (Rocephin 1 Gm (Premix)) 50 mls @ 100 mls/hr IV DAILY [facility]RI PRN Reason: Protocol Stop: 08/04/17 08:59 Last Admin: 07/06/17 08:02 Dose: 50 mls Sodium Chloride (Ns) 1,000 mls @ 125 mls/hr IV CONT [facility] Stop: 01/01/18 11:29 Last Admin: 07/05/17 11:37 Dose: 1,000 mls Magnesium Sulfate (Magnesium Sulf 2 Gm (Premix)) 50 mls @ 50 mls/hr IV ONCE ONE Stop: 07/05/17 14:09 Last Admin: 07/05/17 14:07 Dose: 50 mls Magnesium Sulfate/Dextrose (Magnesium Sulf 1 Gm (Premix)) 100 mls @ 100 mls/hr IV ONCE ONE Stop: 07/06/17 09:03 Last Admin: 07/06/17 09:01 Dose: 100 mls Potassium Chloride (Klor-Con) 20 meq PO DAILY [facility] Stop: 12/31/17 08:59 Last Admin: 07/06/17 07:57 Dose: 20 meq Potassium Chloride (Potassium Chloride Oral Liquid) 40 meq PO ONCE ONE Stop: 07/05/17 11:14 Last Admin: 07/05/17 11:38 Dose: 40 meq Potassium Chloride (Potassium Chloride Oral Liquid) 10 meq PO ONCE ONE PRN Reason: Protocol Stop: 07/06/17 08:16 Last Admin: 07/06/17 09:02 Dose: 10 meq Potassium Chloride (Potassium Chloride Oral Liquid) 20 meq PO DAILY [facility] Stop: 01/02/18 08:59 Last Admin: 07/06/17 09:04 Dose: Not Given Departure - Departure Disposition: [facility] Acute Clinical Impression: Weakness, Septic shock UTI (urinary tract infection) Qualifiers: Urinary tract infection type: catheter-associated UTI Indwelling urinary catheter type: unspecified Encounter type: initial encounter Qualified Code(s): T83.511A - Infection and inflammatory reaction due to indwelling urethral catheter, initial encounter Condition: Critical Report Scribed for: Silvana Macedo Report Scribed by: Eleanor Sandhu Date of Report: 07/03/17 Time of Report: 14:48 Physician Review and Approval Statement: 07/06/17 14:03 Portions of this note were transcribed by the medical biller coder. I, Dr. Silvana Macedo, personally performed the history, physical exam, and medical decision- making; and confirmed the accuracy of the information in the transcribed note.
[2017-07-03] MEDS ORDERED: NS 1,900 ML IV ONE (14:55)
[2017-07-03] MEDS ORDERED: AZITHROMYCIN IV 500 MG in D5W 250 ML IV ONE (14:57)
[2017-07-03 15:00] LABS: APTT 32.9 SEC (23.0-38.0); INR 1.75 (0.83-1.16); PROTIME(PATIENT) 20.5 SEC (12.0-15.0)
[2017-07-03 15:37] LABS: ANION GAP 12 mEq/L (8-16); BILIRUBIN,TOTAL 1.3 mg/dL (0.1-1.4); CALCIUM 9.1 mg/dL (8.5-10.4); CARBON DIOXIDE 21 mEq/l (22-31); CHLORIDE 97 mEq/L (97-110); CREATININE 1.1 mg/dL (0.7-1.3); GLOMERULAR FILTRATION RATE > 60; GLUCOSE 124 mg/dL (70-100); POTASSIUM 4.1 mEq/L (3.5-5.2); SODIUM 130 mEq/L (134-144)
[2017-07-03 15:43] LABS: LACGHOST ORDER
[2017-07-03] MEDS ORDERED: BISACODYL 10 MG SUPP PR PRN (16:43)
[2017-07-03] MEDS ORDERED: MAGNESIUM HYDROXIDE 30 ML UDCUP PO PRN (16:43)
[2017-07-03] MEDS ORDERED: NS 1,000 ML IV SCH (16:45)
[2017-07-03 17:01] LABS: COLOR YELLOW; LEUKOCYTE ESTERASE,URINE 3+ (NEGATIVE); NITRITE,URINE NEGATIVE (NEGATIVE)
[2017-07-03 17:07] LABS: AMORPHOUS PRESENT /hpf (NONE-1+); BACTERIA 2+ /hpf (NONE SEEN); MUCUS TRACE /lpf (NONE-1+); RBC,URINE 50-182 /hpf (0-3); WBC,URINE 50-182 /hpf (0-3)
[2017-07-03 17:20] LABS: TROPONIN I 0.115 ng/mL (0.000-0.034)
--- NOTE | 2017-07-03 17:21 | GHP ---
[f rep st] HISTORY AND PHYSICAL DATE OF ADMISSION: 07/03/2017 CHIEF COMPLAINT: Weakness. HISTORY OF PRESENT ILLNESS: This is a 71-year-old male resident of [facility], who was hospitalized in January of this year with an ischemic leg, also with history of urinary retention with chronic Perez. He was brought to the emergency department today as a stroke alert after he was found to be weak and on the floor. The patient tells me that he fell after losing his footing. In the emergency department he was thought to be septic and not likely to have a CVA. Once again, he has a chronic Perez in place. He does have a history of dementia, which makes him an unreliable historian. He denies any fevers or chills. He denies cough or shortness of breath. PAST MEDICAL HISTORY: 1. Urinary retention with chronic Perez. 2. Systolic congestive heart failure. 3. Left BKA. 4. Pilonidal cyst resection. 5. Paroxysmal atrial fibrillation. 6. History of PE. 7. Dementia. 8. 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 HOME MEDICATIONS: Reviewed. Refer to [facility] for details. ALLERGIES: No known drug allergies. SOCIAL HISTORY: The patient resides at [facility]. He has a history of tobacco use. FAMILY HISTORY: Reviewed and noncontributory. REVIEW OF SYSTEMS: Comprehensive 10-point review of systems was done and is negative, except for as mentioned in the HPI. PHYSICAL EXAMINATION: VITAL SIGNS: Blood pressure 90/62, pulse 120, respiratory rate 34, O2 sat 92% on 3 L. Temperature afebrile. GENERAL: Chronically ill appearing. HEAD: Normocephalic, atraumatic. EYES: PERRLA. Sclerae anicteric. MOUTH: Dry oral mucosa. NECK: Supple. No lymphadenopathy. CARDIOVASCULAR: Tachycardic. Irregularly irregular. S1-S2. No JVD. No lower extremity edema. PULMONARY: Lungs are clear. No wheezes, rales, or rhonchi. ABDOMEN: Soft, nontender, nondistended. No guarding or rebound tenderness. Normoactive bowel sounds. EXTREMITIES: Left BKA. Right lower extremity is warm. No swelling. : Perez catheter in place. NEURO: Cranial nerves 2-12 grossly intact. Only oriented to person thinks he is still at [facility] SKIN: The patient has abrasions on the right pretibial surface without signs of infection. I did not exam him for sacral wounds DIAGNOSTICS: Chest x-ray shows cardiomegaly without failure. EKG, which I visualized and personally interpreted, shows atrial fibrillation, rate 99 beats per minute, with a right bundle branch block, and some ST depression in the anterior leads. WBCs 10.2, hemoglobin 14.3, hematocrit 41.2, platelets 81. Lactic acid was initially 4.3, now down to 2.3. Sodium 130, potassium 4.1, chloride 97, BUN 36, creatinine 1.1, glucose 124. Procalcitonin was elevated at 2.04. UA is currently pending. ASSESSMENT AND PLAN: This is a 71-year-old male, brought in from [facility] , found to have weakness. 1. Systemic inflammatory response syndrome with high concern for severe sepsis , but without a source. Possibly due to urinary tract infection given his Perez catheter use. Plan: We will collect blood and urine cultures that are currently pending. We will treat empirically with Zosyn for now. 2. Lactic acidosis due to above. Plan: Continue to monitor. 3. Hyponatremia, mild, likely hypovolemic. Plan: Will obtain a urine sodium and repeat a serum sodium in the morning. 4. History of atrial fibrillation with poor rate control. Likely exacerbated by infection and possible hypovolemia with electrocardiogram changes concerning for anterior ischemia. Plan: We will obtain a stat troponin and trend as appropriate. The patient is do not resuscitate status and comfort care. A central line was recommended in the ED, but deferred by the patients POA in light of his comfort care preference. He will be admitted to the hospital under inpatient status. He is high risk for venous thromboembolism and we will continue his Xarelto for venous thromboembolism prophylaxis while in the hospital. /[id number]/MODL MTDD
--- NOTE | 2017-07-03 17:27 | ASMTCMCOM ---
CM Note CM Note Notes: Patient admitted for sepsis related to pneumonia. Patient brought into ED via EMS as a Stroke Alert from [facility] where patient resides. Patient has dementia, LLE BKA, CHF, COPD, HTN, indwelling melendez, non-ambulatory, paroxysmal a-fib (is on Xarelto and Plavix). Per chart review and past visit note, patient's MDPOA is his sister Shalini Yates (Jo) ([phone]) who lives in [place]. Per BM paperwork, patient is DNR. Exact DC needs unknown at this time, anticipate patient will DC back to [facility]. CM to follow. Date Signed: 07/03/2017 05:26 PM Electronically Signed By:Marilu Sibley RN
[2017-07-03] MEDS: PIPERACILLIN/TAZO 3.375 GM/DEX 50 ML IV SCH (17:53)
[2017-07-03] MEDS ORDERED: VANCOMYCIN HCL/NORMAL SALINE 250 ML IV SCH (19:00)
[2017-07-03] MEDS ORDERED: OXYBUTYNIN 5 MG EXT REL TAB PO SCH (21:00)
[2017-07-03] MEDS: ASCORBIC ACID 500 MG TAB PO SCH (22:16)
[2017-07-03] MEDS: SENNOSIDES 1 TAB PO SCH (22:17)
[2017-07-03] MEDS: OXYBUTYNIN CHLORIDE 5 MG TAB PO SCH (22:17)
[2017-07-04] MEDS: PIPERACILLIN/TAZO 3.375 GM/DEX 50 ML IV SCH ×4 (00:45→17:49)
[2017-07-04] MEDS: SILVER SULFADIAZINE 50 GM JAR TP SCH ×3 (06:26→23:55)
[2017-07-04 06:28] LABS: % IMMATURE GRANULYOCYTES 0.8 % (0.0-1.1); ABSOLUTE IMMATURE GRANULOCYTES 0.07 10^3/uL (0.00-0.10); ADD DIFF? NO; ADD MORPH? NO; ADD SCAN? NO; ATYPICAL LYMPHOCYTE FLAG 0 (0-99); FRAGMENT RBC FLAG 0 (0-99); HEMATOCRIT 37.4 % (40.0-51.0); HEMOGLOBIN 12.6 g/dL (13.7-17.5); LEFT SHIFT FLG 50 (0-99); LIPEMIA HEMOLYSIS FLAG 80 (0-99); MEAN CELL HEMOGLOBIN 29.8 pg (27.9-34.1); MEAN CELL HEMOGLOBIN CONCENTR. 33.7 g/dL (32.4-36.7); MEAN CELL VOLUME 88.4 fL (81.5-99.8); MEAN PLATELET VOLUME 12.6 fL (8.7-11.7); PLATELET CLUMPS FLAG 10 (0-99); PLATELET COUNT 80 10^3/uL (150-400); RED BLOOD CELL COUNT 4.23 10^6/uL (4.40-6.38); RED CELL DISTRIBUTION WIDTH 16.5 % (11.5-15.2)
[2017-07-04 07:09] LABS: ALANINE AMINOTRANSFERASE 114 IU/L (21-72); ALBUMIN 2.3 g/dL (3.5-5.0); ALKALINE PHOSPHATASE 121 IU/L (38-126); ANION GAP 9 mEq/L (8-16); ASPARTATE AMINOTRANSFERASE 114 IU/L (17-59); CALCIUM 7.9 mg/dL (8.5-10.4); CARBON DIOXIDE 21 mEq/l (22-31); CHLORIDE 106 mEq/L (97-110); CREATININE 0.9 mg/dL (0.7-1.3); GLOMERULAR FILTRATION RATE > 60; GLUCOSE 86 mg/dL (70-100); POTASSIUM 3.5 mEq/L (3.5-5.2); SODIUM 136 mEq/L (134-144); TOTAL PROTEIN 5.1 g/dL (6.3-8.2)
--- NOTE | 2017-07-04 08:24 | HOSPPROG ---
Hospitalist Progress Note Assessment/Plan: #Severe sepsis: due to #E Coli bacteremia: urinary source likely with chronic melendez #h/o atrial fibrillation: currently on home digoxin dose. Xarelto #Dementia: cont home meds. #h/o PE: Xarelto ##Mild pulm hypertension: #Leukocytosis: due to infection. Cont abx #Hypotension: resolved with IVFs #Lactic acidosis: resolved with IVFs #Chronic melendez: exchange #Goal: I had extensive conversations with sister and patient and they want to cont IV abx at this time though he previously stated on MOST that he would want no life saving measures including transfer to hosp, IV abx or fluids, etc. He was clearly able to tell me he has an infection and he can if does not take abx. He wants to continue these. Sister (TULIO) agrees to no escalation of care if clinically declines: no pressors, lines or transfer to the ICU. She agrees to meeting with Palliative Care team to discuss goals and treatment plans from here out. Richy since his health as declined last several months: head/ neck/limbs weaker. Wheelchair bound and overall more weak Disp: cont inpatient admission for bacteremia, requires IVFs, abx Time spent on visit 80 min: reviewed medical records, labs, MOST forms and discussed treatment plan with patient/sister, and CM Subjective: feels stronger today. Denies fever or sweats Objective: Vital Signs Temp Pulse Resp BP Pulse Ox 36.5 C 73 22 H 111/77 97 07/04/17 08:00 07/04/17 08:00 07/04/17 08:00 07/04/17 08:00 07/04/17 08:00 Laboratory Results 07/04/17 06:13 07/04/17 06:13 07/03/17 07/04/17 07/05/17 05:59 05:59 05:59 Intake Total 5425 Output Total 1650 Balance 3775 PT 20.5 SEC (12.0-15.0) H 07/03/17 14:40 INR 1.75 (0.83-1.16) H 07/03/17 14:40 - Physical Exam Constitutional: chronically ill appearing Eyes: PERRL Ears, Nose, Mouth, Throat: poor dentition, dry mucous membranes Cardiovascular: regular rate and rhythym Respiratory: rhonchi Gastrointestinal: normoactive bowel sounds, soft, non-tender abdomen Genitourinary: melendez in urethra, other (right suprapubic TTP) Skin: warm Musculoskeletal: generalized weakness, other (BL leg amputations) Neurologic: AAOx3, CN II-XII Intact Psychiatric: interacting appropriately ICD10 Worksheet Patient Problems: Problems Problem Status Onset Septic shock Acute UTI (urinary tract infection) Acute Weakness Acute Atrial fibrillation Acute Hx of BKA Acute Lower limb ischemia Acute
[2017-07-04] MEDS: DIGOXIN 125 MCG TAB PO SCH (08:51)
[2017-07-04] MEDS: ARIPiprazole 5 MG TAB PO SCH (08:51)
[2017-07-04] MEDS: RIVAROXABAN 20 MG TAB PO SCH (08:51)
[2017-07-04] MEDS: CLOPIDOGREL BISULFATE 75 MG TAB PO SCH (08:51)
[2017-07-04] MEDS: POTASSIUM CL 20 MEQ TAB PO SCH (08:51)
[2017-07-04] MEDS: ATORVASTATIN CALCIUM 40 MG TAB PO SCH (08:52)
[2017-07-04] MEDS: OXYBUTYNIN CHLORIDE 5 MG TAB PO SCH ×2 (08:52→21:37)
[2017-07-04] MEDS: ASCORBIC ACID 500 MG TAB PO SCH ×2 (08:52→21:37)
--- NOTE | 2017-07-04 11:46 | PDMN ---
Medical Necessity Medical necessity: est los >2 mn for SIRS w/high concern for severe sepsis, w/ unknown etiology, r/o UTI, hyponatremia; comorbid AFIB, chronic melendez, CHF; per H&P & order 07/03/17
--- NOTE | 2017-07-04 11:48 | WOCRNPDOC ---
WOCRN Advanced Assessment Note - Skin Integrity Problem, Advanced Assess Right Lower Leg Dressing Type: Kerlix, Mepilex Dressing Description: Clean/Dry, Intact Exudate Amount: Minimal Exudate Color: Clear, Yellow Exudate Characteristic(s): Serous Integumentary Issue Intervention: Dressing Changed, Hydrogel Applied Bea Wound Tissue: Erythema, Intact Wound Bed Color: [place] Wound Bed Constitution: Smooth Tissue (85%), Adhered Slough (In medial portion of wound bed, 15%) Site Measurement - Head-to-Toe Length X Width X Depth (cm): 5.6cmx4.5cmx0.1cm Skin Integrity Problem Comment: Patient with a partial thickness abrasion of unknown origin to right lower, anterior leg. Cleaned wound with NS and gauze. Wound gel applied to wound bed and covered with adaptic touch and then mepilex foam and wrapped with Kerlix. SAVANNAH Lomas present. Wound care will follow up again early next week.
[2017-07-04] MEDS ORDERED: VANCOMYCIN 1.25 GM in D5W 250 ML IV SCH (19:00)
[2017-07-04] MEDS: SENNOSIDES 1 TAB PO SCH (21:37)
[2017-07-05] MEDS: PIPERACILLIN/TAZO 3.375 GM/DEX 50 ML IV SCH ×2 (00:02→06:23)
[2017-07-05 05:17] LABS: HEMATOCRIT 37.9 % (40.0-51.0); HEMOGLOBIN 12.8 g/dL (13.7-17.5); MEAN CELL HEMOGLOBIN 29.8 pg (27.9-34.1); MEAN CELL HEMOGLOBIN CONCENTR. 33.8 g/dL (32.4-36.7); MEAN CELL VOLUME 88.3 fL (81.5-99.8); RED BLOOD CELL COUNT 4.29 10^6/uL (4.40-6.38); RED CELL DISTRIBUTION WIDTH 16.5 % (11.5-15.2)
[2017-07-05 05:27] LABS: ANION GAP 8 mEq/L (8-16); CALCIUM 8.1 mg/dL (8.5-10.4); CARBON DIOXIDE 22 mEq/l (22-31); CHLORIDE 105 mEq/L (97-110); CREATININE 0.8 mg/dL (0.7-1.3); DIGOXIN 0.5 ng/mL (0.8-2.0); GLOMERULAR FILTRATION RATE > 60; GLUCOSE 141 mg/dL (70-100); POTASSIUM 3.3 mEq/L (3.5-5.2); SODIUM 135 mEq/L (134-144)
--- NOTE | 2017-07-05 09:00 | HOSPPROG ---
Hospitalist Progress Note Assessment/Plan: #Severe sepsis: due to #E Coli bacteremia: urinary source likely with chronic melendez. IV Ceftriaxone. Repeat bld cx today. ID consult for prolonged abx therapy #h/o atrial fibrillation: holding digoxin with sinus pause. Xarelto #Sinus pauses: 3 secs. No sxs. Hold digoxin. Replete Mg and K. Would not want a pacemaker #Dementia: cont home meds. #h/o PE: Xarelto ##Mild pulm hypertension: hemodynamically stable. #Leukocytosis: due to infection. Cont abx #Hypotension: cont IVFs #Lactic acidosis: resolved with IVFs #Chronic melendez: exchange #Chronic hypoxemic resp failure: #Goal: I had extensive conversations with sister and patient and they want to cont IV abx at this time though he previously stated on MOST that he would want no life saving measures. He was clearly able to tell me he has an infection and he can if does not take abx. They met with Palliative Care and want selective treatment: I.e abx, IVFs. They agree with no escalation of care if clinically declines: no pressors, lines or transfer to the ICU, or pacemaker Disp: cont inpatient admission for bacteremia, requires IVFs, abx Time spent on visit: 45 min counseling patient and sister on goals and discussing with palliative care team Subjective: no dizziness, CP or SOB Objective: Vital Signs Temp Pulse Resp BP Pulse Ox 36.9 C 90 22 H 113/65 94 07/05/17 04:00 07/05/17 04:00 07/05/17 04:00 07/05/17 04:00 07/05/17 04:00 Laboratory Results 07/05/17 03:45 07/05/17 03:45 07/04/17 07/05/17 07/06/17 05:59 05:59 05:59 Intake Total 5425 2030 Output Total 1650 2360 Balance 3775 -330 PT 20.5 SEC (12.0-15.0) H 07/03/17 14:40 INR 1.75 (0.83-1.16) H 07/03/17 14:40 - Physical Exam Constitutional: no apparent distress, chronically ill appearing Eyes: PERRL Ears, Nose, Mouth, Throat: poor dentition, dry mucous membranes Cardiovascular: regular rate and rhythym Respiratory: no respiratory distress, no rales or rhonchi Gastrointestinal: normoactive bowel sounds Genitourinary: melendez in urethra Musculoskeletal: other (BL leg amputations) Neurologic: AAOx3, CN II-XII Intact Psychiatric: interacting appropriately ICD10 Worksheet Patient Problems: Problems Problem Status Onset Septic shock Acute UTI (urinary tract infection) Acute Weakness Acute Atrial fibrillation Acute Hx of BKA Acute Lower limb ischemia Acute
[2017-07-05] MEDS: ARIPiprazole 5 MG TAB PO SCH (09:10)
[2017-07-05] MEDS: OXYBUTYNIN CHLORIDE 5 MG TAB PO SCH ×2 (09:10→20:09)
[2017-07-05] MEDS: RIVAROXABAN 20 MG TAB PO SCH (09:10)
[2017-07-05] MEDS: CLOPIDOGREL BISULFATE 75 MG TAB PO SCH (09:11)
[2017-07-05] MEDS: ATORVASTATIN CALCIUM 40 MG TAB PO SCH (09:11)
[2017-07-05] MEDS: ASCORBIC ACID 500 MG TAB PO SCH ×2 (09:11→20:08)
[2017-07-05] MEDS: POTASSIUM CL 20 MEQ TAB PO SCH (09:11)
--- NOTE | 2017-07-05 10:59 | ASMTCMCOM ---
CM Note CM Note Notes: Discussed w/Arabella, palliative SUPERVISOR TUBING who met w/pt and Shalini pt's MDPOA; they agreed that plan is to dc back to [facility] when medically stable. Pt wishes clarified and new MOST form filled out and in chart. DEJUAN w/f. Date Signed: 07/05/2017 10:58 AM Electronically Signed By:Tammi Holman RN
[2017-07-05] MEDS: DIGOXIN 125 MCG TAB PO SCH (11:03)
[2017-07-05] MEDS: SILVER SULFADIAZINE 50 GM JAR TP SCH ×2 (11:04→22:02)
[2017-07-05] MEDS ORDERED: POTASSIUM CL 20 MEQ/15 ML UDCUP PO ONE (11:13)
[2017-07-05] MEDS ORDERED: NS 1,000 ML IV SCH (11:30)
[2017-07-05] MEDS ORDERED: MAGNESIUM SULF 2 GM/WATER 50 ML IV ONE (13:10)
[2017-07-05] MEDS ORDERED: PROTOCOL MAGNESIUM 1 DOSE IV PRN (13:11)
[2017-07-05] MEDS ORDERED: PROTOCOL POTASSIUM 1 DOSE MISC PRN (13:11)
--- NOTE | 2017-07-05 17:44 | PDPCPN ---
Palliative Care Progress Note Assessment/Plan: Referring provider: Dr Chisholm Reason for consult: Complex medical decision making Symptom control HPI: Mandeep Yates (Ken) is a 71 yo with PMH COPD, dementia, pul HTn, CHF and recent left BKA after ischemia admitted to the hospital for increased weakness after being found on the floor. 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 Here in the hospital found to have severe sepsis from e coli 2/ 2 chronic indwelling melendez due to urinary retention. Has a MOST form with comfort care only. palliative care consulted for complex medical decision making. met with mk and Shalini at the bedside this afternoon. Mk stated he was feeling ok and liked being in the hospital. he understands he has an infection and would like it treated with antibiotics. he does not remember filling out his MOST form but does want some medical interventions if needed for simple things like antibiotics. He would not want the ICU or more intensive interventions like surgery or other procedures. He feels he has an ok quality of life at . he is able to go outside with help and still likes to play word search games. per shalini he is almost back to his baseline and is still pretty sharp with some mild dementia and short term memory loss. We discussed goals of care with a focus on quality of life. Shalini understood that if mk is in a permanent vegetative state or terminal what to do but did not discuss with him other measures like if he gets another infection. She also is in agreement with mk with simple medical interventions but does notice an overall decline in his health and strength for many months. A lot of discussion spent on making future medical decisions based on quality of life standards vs a standard living will. Assessment: Physical: - Pain: none - tylenol PRN - weakness: - PT/OT as able - turn and reposition Emotional/psychological: some confusion. has good support from friend Advanced Care Planning: Is patient decisional?: yes Code Status: DNR POA: Friend Shalini is MDPOA Plan:Return back to [facility] when medically stable. Would want to return back to the hospital if needed for simple interventions. Subjective: I'm feeling better Objective: Social History: From [place]. Moved to [place] almost 30 years ago. enjoys going outside to watch the animals and doing word search puzzles. Has a close friend Shalini who is like a sister to him and lives locally. Medication list reviewed ROS: General: fatigue, weakness ENT: negative Resp: negative GI: negative : negative MS: negative Skin: negative Neuro: some confusion Psych: negative Functional assessment: PPS: 40% Functional status: dependent on most ADLs Vital Signs Temp Pulse Resp BP Pulse Ox 36.8 C 74 36 H 112/66 93 07/05/17 16:12 07/05/17 16:12 07/05/17 16:12 07/05/17 16:12 07/05/17 16:12 Laboratory Results 07/05/17 03:45 07/05/17 03:45 07/04/17 07/05/17 07/06/17 05:59 05:59 05:59 Intake Total 5425 2030 1920 Output Total 1650 2360 1550 Balance 3775 -330 370 PT 20.5 SEC (12.0-15.0) H 07/03/17 14:40 INR 1.75 (0.83-1.16) H 07/03/17 14:40 Physical Exam - Physical Exam General Appearance: alert, no apparent distress Respiratory: No respiratory distress, No accessory muscle use Skin: warm/dry Extremities: No pedal edema Neuro/Psych: alert, oriented x 3 ICD10 Worksheet Patient Problems: Problems Problem Status Onset Palliative care encounter Acute Septic shock Acute UTI (urinary tract infection) Acute Weakness Acute Atrial fibrillation Acute Hx of BKA Acute Lower limb ischemia Acute - ICD10 Problem Qualifiers (1) Palliative care encounter
[2017-07-05 19:15] LABS: MAGNESIUM 1.8 mg/dL (1.6-2.3)
[2017-07-05] MEDS: SENNOSIDES 1 TAB PO SCH (22:01)
[2017-07-06] MEDS: ACETAMINOPHEN 325 MG TAB PO PRN ×3 (01:22→17:48)
[2017-07-06 05:21] LABS: HEMATOCRIT 37.5 % (40.0-51.0); HEMOGLOBIN 12.5 g/dL (13.7-17.5); MEAN CELL HEMOGLOBIN 29.6 pg (27.9-34.1); MEAN CELL HEMOGLOBIN CONCENTR. 33.3 g/dL (32.4-36.7); MEAN CELL VOLUME 88.7 fL (81.5-99.8); RED BLOOD CELL COUNT 4.23 10^6/uL (4.40-6.38); RED CELL DISTRIBUTION WIDTH 16.4 % (11.5-15.2)
[2017-07-06 05:31] LABS: ANION GAP 12 mEq/L (8-16); CALCIUM 8.2 mg/dL (8.5-10.4); CARBON DIOXIDE 21 mEq/l (22-31); CHLORIDE 106 mEq/L (97-110); CREATININE 0.7 mg/dL (0.7-1.3); GLOMERULAR FILTRATION RATE > 60; GLUCOSE 134 mg/dL (70-100); MAGNESIUM 1.7 mg/dL (1.6-2.3); POTASSIUM 3.7 mEq/L (3.5-5.2); SODIUM 139 mEq/L (134-144)
[2017-07-06] MEDS: RIVAROXABAN 20 MG TAB PO SCH (07:57)
[2017-07-06] MEDS: ATORVASTATIN CALCIUM 40 MG TAB PO SCH (07:57)
[2017-07-06] MEDS: POTASSIUM CL 20 MEQ TAB PO SCH (07:57)
[2017-07-06] MEDS: CLOPIDOGREL BISULFATE 75 MG TAB PO SCH (07:58)
[2017-07-06] MEDS: ASCORBIC ACID 500 MG TAB PO SCH ×2 (07:58→20:43)
[2017-07-06] MEDS: OXYBUTYNIN CHLORIDE 5 MG TAB PO SCH ×2 (08:00→20:43)
[2017-07-06] MEDS: ARIPiprazole 5 MG TAB PO SCH (08:01)
[2017-07-06] MEDS ORDERED: POTASSIUM CL 10 MEQ TAB PO ONE (08:03)
[2017-07-06] MEDS ORDERED: MAGNESIUM SULF 1 GM/DEXTROSE 100 ML IV ONE (08:04)
[2017-07-06] MEDS: SILVER SULFADIAZINE 50 GM JAR TP SCH (08:07)
[2017-07-06] MEDS ORDERED: POTASSIUM CL 20 MEQ/15 ML UDCUP PO ONE (08:15)
[2017-07-06] MEDS ORDERED: POTASSIUM CL 20 MEQ/15 ML UDCUP PO SCH (09:00)
--- NOTE | 2017-07-06 15:33 | HOSPPROG ---
Hospitalist Progress Note Assessment/Plan: Assessment: 71-year-old male presents with severe sepsis secondary to E coli bacteremia in the setting of dementia Plan: #Severe sepsis: POA, Evidenced by autonomic dysregulation in setting of infxn w / lactic acidosis, hypotension, tachypnea, leukocytosis, tachycardia -stabilized, resolved #E Coli bacteremia: Urinary source likely with chronic melendez -cont CTX IV today, d/w Dr. Jay, she has recommended PO Levofloxacin starting tomorrow -BCx 07/05 pending #Catheter-Associated UTI: POA, 2/2 indwelling chronic melendez -change melendez s/p 24hrs IV abx #Permanent Atrial Fibrillation: EKG w/ Afib and RBBB, sinus pauses on digoxin -holding digoxin today, will restart tomorrow AM -monitoring tele -cont Xarelto #Sinus pauses: 3 secs, asymptomatic, does not want pacer -cont holding dig #Dementia w/ chronic encephalopathy: cont home meds. #h/o PE: Xarelto #Acute Metabolic/Lactic acidosis: resolved with IVFs #Chronic hypoxemic resp failure: cont supp o2, CXR w/ peribronchial thickening ( personally interpreted) Diet: regular Code: DNR PPx: high risk, on xarelto Dispo: ADD 07/07, pending stability of above High level of medical complexity with high risk of worsening morbidity/mortality , for issues outlined above. Subjective: feels weak, no BM Objective: Vital Signs Temp Pulse Resp BP Pulse Ox 36.8 C 81 44 H 103/62 94 07/06/17 11:16 07/06/17 11:16 07/06/17 08:00 07/06/17 11:16 07/06/17 11:16 Laboratory Results 07/06/17 04:17 07/06/17 04:17 07/05/17 07/06/17 07/07/17 05:59 05:59 05:59 Intake Total 20290 Output Total 2360 2700 900 Balance -330 -180 -900 PT 20.5 SEC (12.0-15.0) H 07/03/17 14:40 INR 1.75 (0.83-1.16) H 07/03/17 14:40 - Pending Discharge Pending Discharge Within 24 Hours: Yes Pending Discharge Date: 07/07/17 Pending Discharge Time: 11:00 - Physical Exam Constitutional: not in pain, chronically ill appearing, unkempt, No uncomfortable Ears, Nose, Mouth, Throat: poor dentition Cardiovascular: regular rate and rhythym, no murmur, rub, or gallop, No irregularly irregular, No edema Respiratory: no respiratory distress, no rales or rhonchi, clear to auscultation Gastrointestinal: No normoactive bowel sounds (hypoactive bowel sounds), No tenderness, No guarding, No distension Neurologic: AAOx3, No weakness (motor 5/5 bilat mill tender washing, 4/5 bilat motor) Psychiatric: not anxious, flat affect, other (concentration 7/), No agitated ICD10 Worksheet Patient Problems: Problems Problem Status Onset Lower limb ischemia Acute Atrial fibrillation Acute Hx of BKA Acute Weakness Acute Septic shock Acute UTI (urinary tract infection) Acute Palliative care encounter Acute
--- NOTE | 2017-07-06 15:52 | ASMTCMCOM ---
CM Note CM Note Notes: Reviewed chart and d/w RN. Still anticipate return to [facility] when medically stable. Updated Sully from BM and sent referral info through [facility]. DEJUAN w/f. Date Signed: 07/06/2017 03:52 PM Electronically Signed By:Tammi Holman, RN
--- NOTE | 2017-07-06 17:02 | GCON ---
P.o. [ rep st] CONSULTATION INFECTIOUS DISEASE CONSULTATION DATE OF CONSULTATION: 07/06/2017 REFERRING PHYSICIAN: Emily Chisholm MD REASON FOR CONSULTATION: E coli bacteremia. HISTORY OF PRESENT ILLNESS: A 71-year-old male, resident of [facility], who was hospitalized on 07/03/2017 after found down on the floor. Patient was brought to the emergency room, found to be mildly hypotensive and tachycardic and had a mild leukocytosis. There was concern for severe sepsis. Initially, unclear source. The patient was cultured and subsequently was found to have E coli bacteremia. Patient was initially given Zosyn and transitioned to ceftriaxone on 07/05/2017. ID is asked to consult today for definitive therapy for E coli bacteremia. Patient has no specific complaints today, but is a difficult historian. PAST MEDICAL HISTORY: 1. Urinary retention of unclear etiology, with chronic indwelling Perez. 2. CHF. 3. Left BKA, also unclear reasoning of underlying BKA. 4. Paroxysmal atrial fibrillation. 5. History of pulmonary embolus. 6. Dementia. 7. Right lower extremity ischemia in January. MEDICATIONS: Ceftriaxone 1 g IV daily, Abilify 5 mg daily, Tylenol 350 mg every 6 hours p.r.n., atorvastatin 40 mg daily, Dulcolax 10 mg HI daily as needed, vitamin D3 50,000 units orally every 30 days, Plavix 75 mg daily, milk of magnesia as needed, magnesium protocol, Ditropan 2.5 mg twice daily, oxycodone 5 mg every 6 hours as needed, Xarelto 20 mg daily, senna 2 tabs nightly as scheduled, silver Silvadene to his wound. ALLERGIES: NKDA. SOCIAL HISTORY: The patient reports he is originally from [place], came to [place] in the early . Remote history of tobacco, not using alcohol. FAMILY HISTORY: Negative per review of chart. REVIEW OF SYSTEMS: On asking patient [id number] questions for yes and no questions, the patient denied all 10-point review of systems. PHYSICAL EXAM: VITAL SIGNS: 103/62. Heart rate is 81, saturation 94% on 3 L, temperature 36.8. GENERAL: This is a somewhat disheveled elderly male, sitting in bed, in no acute distress. HEENT: Poor dentition, injected conjunctivae. NECK: Supple. CARDIOVASCULAR: Irregularly irregular. CHEST: He had coarse breath sounds bilaterally. ABDOMEN: Slightly distended. Bowel sounds are present. Nontender. : Perez was in place. EXTREMITIES: Patient has a left BKA. Right lower extremity with nonpalpable pulses, hyperemic changes in a stocking distribution consistent with arterial insufficiency. SKIN: No rashes. NEUROLOGIC: The patient had a contracture of his left upper extremity. The patient does not know the origin of this contracture. The patient did follow commands appropriately. LABORATORY DATA: White count 9.9, hematocrit 37, platelets of 127, creatinine 0.8. Initial LFTs: AST 114, ALT 114, alkaline phosphatase 121, total bilirubin 1.0. The patient had a mildly elevated troponin at 0.13. Blood cultures: 2 sets grew william susceptible E coli, and urine culture grew 100,000 E coli that was also william susceptible, as well as a gram-positive cocci. Workup is pending. IMAGING: Chest x-ray showed enlarged cardiomediastinal silhouette, otherwise unremarkable. ASSESSMENT/PLAN: A 71-year-old male who presented to the hospital after being found down and was found to have signs consistent with sepsis. Subsequently, source was identified to be Escherichia coli bacteremia, likely sourced from urinary tract infection with chronic catheter in place. In addition, it was noted that 100,000 gram positive cocci are also present in the urine. Suspect this is a colonizer. ASSESSMENT 1. Sepsis secondary to E Coli bacteremia, urinary source 2. Mild leukocytosis and thrombocytopenia, likely attributable to infection. 3. Mild transaminitis, also likely attributed to infection. PLAN 1. Would recommend a total of 10 days of therapy for E coli bacteremia (Stop date 07/14/17). Reasonable to complete therapy with levofloxacin 750 mg p.o. every other day based on CrCl. Absorption of IV and p. o. levofloxacin is equivalent. The patient has already received his dose of antibiotics today. Therefore, we will initiate levofloxacin tomorrow. 2. Recheck the LFTs to assure trending in the correct direction. 4. Followup with ID is not needed. 5. Before discharge, his catheter should be changed. 6. Call for additional questions. Thank you for this consultation. /[id number]/MODL MTDD
[2017-07-06 18:21] LABS: POTASSIUM 4.5 mEq/L (3.5-5.2)
[2017-07-06] MEDS: SENNOSIDES 1 TAB PO SCH (21:22)
[2017-07-06] MEDS ORDERED: METOPROLOL TARTRATE 25 MG TAB PO ONE (22:00)
[2017-07-07] MEDS: SILVER SULFADIAZINE 50 GM JAR TP SCH ×3 (00:51→20:54)
[2017-07-07 06:28] LABS: % IMMATURE GRANULYOCYTES 0.6 % (0.0-1.1); ABSOLUTE IMMATURE GRANULOCYTES 0.07 10^3/uL (0.00-0.10); ADD DIFF? NO; ADD MORPH? NO; ADD SCAN? NO; ATYPICAL LYMPHOCYTE FLAG 90 (0-99); FRAGMENT RBC FLAG 0 (0-99); HEMATOCRIT 38.4 % (40.0-51.0); HEMOGLOBIN 13.1 g/dL (13.7-17.5); LEFT SHIFT FLG 0 (0-99); LIPEMIA HEMOLYSIS FLAG 90 (0-99); MEAN CELL HEMOGLOBIN CONCENTR. 34.1 g/dL (32.4-36.7); MEAN CELL VOLUME 87.9 fL (81.5-99.8); MEAN PLATELET VOLUME 11.5 fL (8.7-11.7); PLATELET CLUMPS FLAG 0 (0-99); PLATELET COUNT 175 10^3/uL (150-400); RED BLOOD CELL COUNT 4.37 10^6/uL (4.40-6.38); RED CELL DISTRIBUTION WIDTH 16.6 % (11.5-15.2)
[2017-07-07 06:33] LABS: ANION GAP 11 mEq/L (8-16); CALCIUM 8.3 mg/dL (8.5-10.4); CARBON DIOXIDE 21 mEq/l (22-31); CHLORIDE 107 mEq/L (97-110); CREATININE 0.7 mg/dL (0.7-1.3); GLOMERULAR FILTRATION RATE > 60; GLUCOSE 88 mg/dL (70-100); MAGNESIUM 1.7 mg/dL (1.6-2.3); POTASSIUM 4.2 mEq/L (3.5-5.2); SODIUM 139 mEq/L (134-144)
[2017-07-07] MEDS ORDERED: DIGOXIN 125 MCG TAB PO SCH (08:00)
[2017-07-07] MEDS: ASCORBIC ACID 500 MG TAB PO SCH ×2 (08:41→20:53)
[2017-07-07] MEDS: ATORVASTATIN CALCIUM 40 MG TAB PO SCH (08:42)
[2017-07-07] MEDS: ARIPiprazole 5 MG TAB PO SCH (08:42)
[2017-07-07] MEDS: RIVAROXABAN 20 MG TAB PO SCH (08:42)
[2017-07-07] MEDS: CLOPIDOGREL BISULFATE 75 MG TAB PO SCH (08:42)
[2017-07-07] MEDS: OXYBUTYNIN CHLORIDE 5 MG TAB PO SCH ×2 (08:43→20:53)
[2017-07-07] MEDS: POTASSIUM CL 20 MEQ/15 ML UDCUP PO SCH (08:44)
[2017-07-07] MEDS: DIGOXIN 125 MCG TAB PO SCH (10:26)
[2017-07-07] MEDS: CARVEDILOL 3.125 MG TAB PO SCH ×2 (10:36→19:17)
--- NOTE | 2017-07-07 15:33 | HOSPPROG ---
Hospitalist Progress Note Assessment/Plan: Assessment: 71-year-old male presents with severe sepsis secondary to E coli bacteremia in the setting of dementia Plan: #Severe sepsis: POA, Evidenced by autonomic dysregulation in setting of infxn w / lactic acidosis, hypotension, tachypnea, leukocytosis, tachycardia -stabilized, resolved #E Coli bacteremia: Urinary source likely with chronic melendez -adjusted to Levofloxacin PO today, 14 days from 07/05 w/ ID f/u -BCx 07/05 pending #Catheter-Associated UTI: POA, 2/2 indwelling chronic melendez -changed melendez s/p 24hrs IV abx #Permanent Atrial Fibrillation: RVR o/n after holding Rx, restarting digoxin and coreg this AM, gauge response, monitor for significant pauses #Sinus pauses: 3 secs, asymptomatic, does not want pacer #Dementia w/ chronic encephalopathy: cont home meds. #h/o PE: Xarelto #Acute Metabolic/Lactic acidosis: resolved with IVFs #Chronic hypoxemic resp failure: cont supp o2, CXR w/ peribronchial thickening Diet: regular Code: DNR PPx: high risk, on xarelto Dispo: ADD 07/08, pending stability of Afib RVR Subjective: patient reports energy improving Objective: Vital Signs Temp Pulse Resp BP Pulse Ox 36.6 C 101 H 35 H 111/65 94 07/07/17 15:14 07/07/17 15:14 07/07/17 15:14 07/07/17 15:14 07/07/17 15:14 Microbiology 07/03/17 16:25 Urine Culture - Final Urine,Catheterized Escherichia Coli Proteus Species Enterococcus Faecalis Laboratory Results 07/07/17 06:02 07/07/17 06:02 07/06/17 07/07/17 07/08/17 05:59 05:59 05:59 Intake Total 2520 1360 430 Output Total 2700 2400 Balance -180 -1040 430 PT 20.5 SEC (12.0-15.0) H 07/03/17 14:40 INR 1.75 (0.83-1.16) H 07/03/17 14:40 - Pending Discharge Pending Discharge Within 24 Hours: Yes Pending Discharge Date: 07/08/17 Pending Discharge Time: 11:00 - Physical Exam Constitutional: not in pain, chronically ill appearing, unkempt, No uncomfortable Ears, Nose, Mouth, Throat: poor dentition Cardiovascular: irregularly irregular, tachycardia, No systolic murmur, No edema Respiratory: no respiratory distress, no rales or rhonchi, clear to auscultation Gastrointestinal: normoactive bowel sounds, soft, non-tender abdomen, no palpable masses, No distension Skin: other (hyperpigmentation RLE w/o ulcerations) Musculoskeletal: other (L BKA) Neurologic: AAOx3, sensation intact bilaterally, weakness (LUE hand w/ contracture, RUE hand w/ 5/5 motor strength) Psychiatric: not anxious, thought process linear, flat affect, No agitated ICD10 Worksheet Patient Problems: Problems Problem Status Onset Lower limb ischemia Acute Atrial fibrillation Acute Hx of BKA Acute Weakness Acute Septic shock Acute UTI (urinary tract infection) Acute Palliative care encounter Acute
[2017-07-07] MEDS: oxyCODONE IR 5 MG TAB PO PRN (20:53)
[2017-07-07] MEDS: SENNOSIDES 1 TAB PO SCH (20:55)
[2017-07-08] MEDS: oxyCODONE IR 5 MG TAB PO PRN (03:04)
[2017-07-08] MEDS: ACETAMINOPHEN 325 MG TAB PO PRN (03:04)
[2017-07-08 05:40] LABS: % IMMATURE GRANULYOCYTES 1.2 % (0.0-1.1); ABSOLUTE IMMATURE GRANULOCYTES 0.11 10^3/uL (0.00-0.10); ADD DIFF? NO; ADD MORPH? NO; ADD SCAN? NO; ATYPICAL LYMPHOCYTE FLAG 70 (0-99); FRAGMENT RBC FLAG 0 (0-99); HEMATOCRIT 38.3 % (40.0-51.0); HEMOGLOBIN 12.9 g/dL (13.7-17.5); LEFT SHIFT FLG 10 (0-99); LIPEMIA HEMOLYSIS FLAG 80 (0-99); MEAN CELL HEMOGLOBIN 30.2 pg (27.9-34.1); MEAN CELL HEMOGLOBIN CONCENTR. 33.7 g/dL (32.4-36.7); MEAN CELL VOLUME 89.7 fL (81.5-99.8); MEAN PLATELET VOLUME 11.6 fL (8.7-11.7); PLATELET CLUMPS FLAG 10 (0-99); PLATELET COUNT 185 10^3/uL (150-400); RED BLOOD CELL COUNT 4.27 10^6/uL (4.40-6.38); RED CELL DISTRIBUTION WIDTH 16.8 % (11.5-15.2)
[2017-07-08 05:55] LABS: ANION GAP 9 mEq/L (8-16); CALCIUM 8.6 mg/dL (8.5-10.4); CARBON DIOXIDE 24 mEq/l (22-31); CHLORIDE 105 mEq/L (97-110); CREATININE 0.7 mg/dL (0.7-1.3); GLOMERULAR FILTRATION RATE > 60; GLUCOSE 88 mg/dL (70-100); POTASSIUM 4.5 mEq/L (3.5-5.2); SODIUM 138 mEq/L (134-144)
[2017-07-08 09:13] LABS: ALBUMIN 2.5 g/dL (3.5-5.0); BILIRUBIN,TOTAL 0.8 mg/dL (0.1-1.4); BILIRUBIN-CONJUGATED 0.4 mg/dL (0.0-0.5); BILIRUBIN-UNCONJUGATED 0.4 mg/dL (0.0-1.1); TOTAL PROTEIN 5.4 g/dL (6.3-8.2)
[2017-07-08] MEDS: ASCORBIC ACID 500 MG TAB PO SCH (10:31)
[2017-07-08] MEDS: RIVAROXABAN 20 MG TAB PO SCH (10:32)
[2017-07-08] MEDS: OXYBUTYNIN CHLORIDE 5 MG TAB PO SCH (10:32)
[2017-07-08] MEDS: ARIPiprazole 5 MG TAB PO SCH (10:32)
[2017-07-08] MEDS: ATORVASTATIN CALCIUM 40 MG TAB PO SCH (10:33)
[2017-07-08] MEDS: CARVEDILOL 3.125 MG TAB PO SCH (10:33)
[2017-07-08] MEDS: CLOPIDOGREL BISULFATE 75 MG TAB PO SCH (10:33)
[2017-07-08] MEDS: DIGOXIN 125 MCG TAB PO SCH (10:33)
[2017-07-08] MEDS: POTASSIUM CL 20 MEQ/15 ML UDCUP PO SCH (10:35)
[2017-07-08] MEDS: SILVER SULFADIAZINE 50 GM JAR TP SCH (10:35)
[2017-07-08 12:31] VITALS: RESP 32
--- NOTE | 2017-07-08 14:06 | PDIAF ---
- Diagnosis Diagnosis: E. coli bacteremia, CAUTI Code Status: Do Not Resuscitate - Medication Management Discharge Medications: Medications to Continue on Transfer Acetaminophen [Tylenol 325mg (*)] 325 mg PO Q6 PRN 02/10/17 [Last Taken Unknown] Ascorbic Acid [Vitamin C 500 mg (*)] 1,000 mg PO BID 02/10/17 [Last Taken ] Cholecalciferol Vit D3 [Vitamin D3 (*)] 50,000 unit PO Q30D 02/10/17 [Last Taken 06/21/17] Digoxin [Lanoxin 125 mcg (RX)] 125 mcg PO DAILY@08 02/10/17 [Last Taken 02/09/17 ] Magnesium Hydroxide [Milk of Magnesia] 30 ml PO DAILY PRN 02/10/17 [Last Taken Unknown] Potassium Cl [Klor-Con 20 meq (*)] 20 meq PO DAILY 02/10/17 [Last Taken 02/09/17 ] Rivaroxaban [Xarelto] 20 mg PO DAILY 02/10/17 [Last Taken 02/09/17] Sennosides [Senokot] 2 each PO HS 02/10/17 [Last Taken 02/09/17] oxyCODONE IR [Oxycodone Ir (*)] 5 mg PO Q6H PRN 02/10/17 [Last Taken 02/07/17] Atorvastatin Calcium [Lipitor 40 mg (*)] 40 mg PO DAILY #30 tab 02/12/17 [Last Taken Unknown] Carvedilol [Coreg (*)] 3.125 mg PO BIDMEAL #60 tab 02/12/17 [Last Taken Unknown] Furosemide [Lasix 20 MG (*)] 20 mg PO DAILY #30 tab 02/12/17 [Last Taken Unknown ] ARIPiprazole [Abilify 5 mg (*)] 5 mg PO DAILY 07/03/17 [Last Taken Unknown] Bisacodyl [Dulcolax] 10 mg RC DAILY PRN 07/03/17 [Last Taken Unknown] Clopidogrel Bisulfate [Plavix (*)] 75 mg PO DAILY 07/03/17 [Last Taken Unknown] Oxybutynin Chloride Xl [Ditropan Xl 5mg (*)] 2.5 mg PO BID 07/03/17 [Last Taken Unknown] Silver Sulfadiazine [Silvadene] 1 gm TP BID 07/03/17 [Last Taken Unknown] levOFLOXACIN [levAQUIN (*)] 750 mg PO Q2D@1000 #3 tab 07/08/17 [Last Taken Unknown] Credit Rating Checker Antibiotics: Levofloxacin 750mg PO q48hrs (start 07/09/17) Skilled Nursing Antibiotic Stop Date: 07/14/17 Discharge Medications: Refer to the Discharge Home Medication list for PRN reason. PICC Care - Routine: N/A - Orders Services needed: Registered Nurse, Certified Singeing Torch Operator, Physical Therapy, Occupational Therapy Oxygen: 4L NC Diet Recommendation: cardiac -low fat low salt Weigh Patient: weekly Wound Care Instructions: Change dressings to right lower, anterior leg every 3 days and PRN. 1. Clean with NS and gauze. 2. Skin prep fly wound. 3. Wound gel to wound bed. 4. Cover with bordered foam dressing. - Follow Up Care Current Providers and Referrals: Unknown,Unknown [Unknown] - As per Instructions
--- NOTE | 2017-07-08 14:13 | PDDCSUM ---
Discharge Summary Discharge Summary: DISCHARGE SUMMARY FOLLOW-UP ITEMS: Outpatient primary care follow-up DATE OF ADMISSION: 07/03/2017 DATE OF DISCHARGE: 07/08/2017 DISCHARGE DIAGNOSES: 1. Severe sepsis present on admission 2. E coli bacteremia 3. Catheter associated urinary tract infection present on admission 4. Permanent atrial fibrillation 5. Sinus pauses 6. Dementia with chronic encephalopathy 7. Chronic hypoxic respiratory failure 8. Acute metabolic acidosis CONSULTATIONS: Infectious Disease PROCEDURES / IMAGING: Abdomen pelvis ultrasound demonstrating no perinephric abscess CHIEF COMPLAINT: Generalized weakness SUBJECTIVE: Patient is feeling well at time of discharge, he has no complaints PHYSICAL EXAM ON DISCHARGE: Systolic blood pressure 120, heart rate 90, afebrile overnight, satting well on 4 L nasal cannula, alert awake oriented x3, patient is chronically ill-appearing , he has terrible dentition, abdomen is soft nontender nondistended with bowel sounds present, his right lower extremity has some chronic hyperpigmentation but no edema, his left BKA, lungs are clear to auscultation bilaterally, heart rhythm is irregularly irregular with intermittent tachycardia LABS ON DISCHARGE: Potassium 4.5, creatinine 0.7, white blood count 9800, hemoglobin 12.9 HOSPITAL COURSE BY PROBLEM: 1. Severe sepsis. Present on admission, evidenced by autonomic dysregulation in the setting of infection with lactic acidosis, hypotension, tachypnea, leukocytosis, tachycardia, fulfilling all ICS-3 criteria with sofa score, receiving empiric IV fluids and empiric IV antibiotics. 2. E coli bacteremia. Patient had a blood stream infection secondary to his urinary source with chronic indwelling Perez catheter. He initially received empiric IV antibiotics and was seen in consultation by Infectious Disease. He was adjusted to ceftriaxone, and levofloxacin for discharge. He received 10 days of therapy from his negative culture date of 07/05/2017. His levofloxacin is being renally dosed, receiving every other day, for 3 subsequent doses after discharge. 3. Catheter associated urinary tract infection. Present on admission, secondary to indwelling Perez catheter for chronic urinary retention. His Perez catheter was changed 24 hours after initiating on IV antibiotics. His chronic indwelling Perez catheter is an issue that should be continuously reassessed by his outpatient primary care provider, and outpatient Urology consultation may be warranted if there are concerns about possibly placing him on prophylactic antibiotic therapy. 4. Permanent atrial fibrillation. Patient experienced acute rapid ventricular response after holding his home digoxin and Coreg for sinus pauses. The patient was re-initiated on both of these medications and did not demonstrate any significant sinus pauses thereafter. He was continued on Xarelto as well. 5. Asymptomatic sinus pauses. Patient had a sinus pause up to 3 seconds long, was asymptomatic, patient does not want a permanent pacemaker, so Cardiology was not consulted. I did recommend we initiating his home medications and we did so with supervision, monitoring him on telemetry for 24 hours prior to discharging. He did not demonstrate any evidence of recurrent sinus pauses. 6. Dementia with chronic encephalopathy. The patient has been continued on his home mood stabilizing medications and should be noted that his behavior fluctuates widely, between medical providers. The patient is calm and not agitated at time of discharge. 7. Acute metabolic acidosis. Secondary to lactic acidosis with initial lactic around 4, this resolved with IV fluids, this has stabilized at time of discharge. 8. Chronic hypoxemic respiratory failure. Patient has some peribronchial thickening on chest x-ray, but no of focal infiltrates. He was continued on his home supplemental oxygen. DISCHARGE MEDICATIONS: Please see official discharge medication reconciliation sheet in chart , levofloxacin 750 mg every other day for 3 subsequent days, continue all other home medications. DISCHARGE INSTRUCTIONS: Please have your outpatient primary care provider readdress urine need for chronic indwelling Perez catheter. TIME SPENT: Greater than 30 minutes were spent on direct patient care, as well as discharge planning and preparation.
--- NOTE | 2017-07-08 15:26 | ASMTCMCOM ---
CM Note CM Note Notes: 07/08/2017 Case Management Note Pt to d/c back to [facility]. RN attempted to call RN report and phone was not answered at . box full for Dahlia at . Main number [phone] rings to a fax. Attempted to reach Audrey at [facility] at [phone], left . At this point contacted Lynda Ontiveros who made contact at the facility. Arranged transport via [facility] per instructions from Lynda Ontiveros who spoke with Sully at . [facility] transport to be charged to per Sully. Pt d/c with all paperwork, faxed info via [employer], as well as sent hardcopies of d/c paperwork and hard copy of new MOST form. Date Signed: 07/08/2017 03:26 PM Electronically Signed By:Tg Christensen RN
[2017-07-08 16:45] VITALS: BP 100/68; PULSE 124; TEMP 98.3; O2SAT 91
[2017-07-22] MEDS ORDERED: CHOLECALCIFEROL VIT D3 50,000 UNIT CAP PO SCH (09:00)
== END 2017-07-08 18:20 | DRG 872 ==
LOC: EDUNIT# → F2W 18:24
PROVIDERS: ADMIT Family Medicine; ATTEND Family Medicine
DX: A41.51 Sepsis due to Escherichia coli [E. coli] (principal); R65.20 Severe sepsis without septic shock; T83.511A Infection and inflammatory reaction due to indwelling urethral catheter, initial encounter; F03.90 Unspecified dementia, unspecified severity, without behavioral disturbance, psychotic disturbance, mood disturbance, and anxiety; I48.0 Paroxysmal atrial fibrillation; I45.5 Other specified heart block; I50.20 Unspecified systolic (congestive) heart failure; I27.20 Pulmonary hypertension, unspecified; J44.9 Chronic obstructive pulmonary disease, unspecified; J96.11 Chronic respiratory failure with hypoxia; E87.2 Acidosis; F17.210 Nicotine dependence, cigarettes, uncomplicated; R33.9 Retention of urine, unspecified; Z96.0 Presence of urogenital implants; Z89.512 Acquired absence of left leg below knee; Z89.421 Acquired absence of other right toe(s); Z86.711 Personal history of pulmonary embolism; Z99.81 Dependence on supplemental oxygen; Z79.01 Long term (current) use of anticoagulants; Z66 Do not resuscitate
CPT/HCPCS: 96365; J0456; J0696; J2543; J3370; J3475